=== PATIENT | female | born 1960 | race Caucasian/White ===

== ENCOUNTER 2017-05-20 12:07 | Emergency (ER) | payer OTHER ==
[~2017-05-20] VITALS: Ht 167.6 cm; Wt 88.0 kg
[2017-05-20 12:21] VITALS: BP 101/72
[2017-05-20 12:52] LABS: Basophils # (auto) 0.2 uL; Basophils % (auto) 1.6 % (0.0-2.0); CONDITION Y; Eosinophils # (auto) 0.4 uL; Eosinophils % (auto) 2.4 % (0.0-7.0); Hematocrit 41.1 % (36.0-46.0); Hemoglobin 13.9 g/dL (12.2-16.2); Lymphocytes # (auto) 2.7 uL; Lymphocytes % (auto) 18.6 % (10.0-50.0); Mean Corpuscular Hemoglobin 29.5 pg (28.0-32.0); Monocytes % (auto) 6.8 % (0.0-12.0); Neutrophils # (auto) 10.3 uL; Neutrophils % (auto) 70.6 % (37.0-80.0); Platelet Count (auto) 480 10^3/uL (140-450); Red Cell Distribution Width 12.8 % (11.6-16.0); White Blood Cell 14.6 10^3/uL (4.4-10.8)
[2017-05-20 13:17] LABS: Albumin 3.1 g/dL (3.4-5.0); Alkaline Phosphatase 133 U/L (45-117); Anion Gap 13 (5-15); Aspartate Aminotransferase 16 U/L (15-37); Bilirubin, Total 0.3 mg/dL (0.2-1.0); Blood Urea Nitrogen 17 mg/dL (7-18); Calcium 9.4 mg/dL (8.5-10.1); Carbon Dioxide 22 mmol/L (21-32); Chloride 104 mmol/L (98-107); GFR African American 89 mL/min; GFR Non-African American 74 mL/min; Glucose 137 mg/dL (74-106); Potassium 3.6 mmol/L (3.5-5.1); Sodium 139 mmol/L (136-145); Total Protein 7.6 g/dL (6.4-8.2)
[2017-05-20 13:44] LABS: Urine Bilirubin Negative (Negative); Urine Blood Negative /uL (Negative); Urine Color Yellow (Yellow); Urine Glucose Normal (Normal); Urine Hyaline Cast MANY /lpf (0 - 2); Urine Ketone TRACE (Negative); Urine Mucus FEW (None Seen); Urine Nitrite Negative (Negative); Urine RBC 2 /hpf (0 - 4); Urine Squamous Epithelial Cell MOD /hpf (<5); Urine WBC Clumps PRESENT /hpf (None Seen); Urine pH 5.5 (5.0-8.0)
== END 2017-05-21 00:30 | disposition left against medical advice (07) ==
LOC: ER 12:11
DX: R10.30 Lower abdominal pain, unspecified (principal); Z53.21 Procedure and treatment not carried out due to patient leaving prior to being seen by health care provider
CPT/HCPCS: 36415; 80053; 81001; 84484; 85025; 93005

== ENCOUNTER 2018-01-27 01:06 | Inpatient (IN) | payer OTHER ==
[~2018-01-27] VITALS: Ht 167.6 cm; Wt 78.2 kg
[2018-01-27 02:05] LABS: Basophils # (auto) 0.2 uL; Basophils % (auto) 1.1 % (0.0-2.0); Eosinophils # (auto) 0.4 uL; Eosinophils % (auto) 3.1 % (0.0-7.0); Hematocrit 45.2 % (36.0-46.0); Hemoglobin 15.2 g/dL (12.2-16.2); Lymphocytes # (auto) 2.7 uL; Lymphocytes % (auto) 18.7 % (10.0-50.0); Mean Corpuscular Hemoglobin 29.3 pg (28.0-32.0); Mean Corpuscular Hgb Conc. 33.6 g/dL (32.0-36.0); Mean Corpuscular Volume 87.3 fL (80.0-100.0); Monocytes # (auto) 0.8 uL; Monocytes % (auto) 5.6 % (0.0-12.0); Neutrophils # (auto) 10.5 uL; Neutrophils % (auto) 71.5 % (37.0-80.0); Platelet Count (auto) 343 10^3/uL (140-450); Red Blood Cells 5.18 10^6/uL (4.0-5.20); Red Cell Distribution Width 13.3 % (11.8-14.3); White Blood Cell 14.7 10^3/uL (4.4-10.8)
[2018-01-27 02:46] LABS: Albumin 3.3 g/dL (3.4-5.0); BUN/Creatinine Ratio 19.4; Magnesium 1.7 mg/dL (1.6-2.6); Potassium 3.8 mmol/L (3.5-5.1)
[2018-01-27 02:51] LABS: Bilirubin, Total 0.3 mg/dL (0.2-1.0)
[2018-01-27] MEDS ORDERED: metroNIDAZOLE 500 MG TAB PO ONE (04:00)
[2018-01-27] MEDS ORDERED: cefTRIAXone 1GM/10ml IVPUSH 10 ML IV ONE (04:00)
[2018-01-27] MEDS ORDERED: SODIUM CHLORIDE 0.9% 1,000 ML IV ONE (04:00)
[2018-01-27] MEDS ORDERED: ONDANSETRON HCL 4 MG/2 ML VIAL IV ONE (04:45)
[2018-01-27] MEDS ORDERED: MORPHINE SULFATE 4 MG/ML SYR/VIAL IV ONE (04:45)
[2018-01-27 05:03] LABS: Urine Bacteria NONE SEEN /hpf (None Seen); Urine Blood Negative /uL (Negative); Urine Specific Gravity 1.029 (1.001-1.035); Urine WBC 2 /hpf (0 - 5)
[2018-01-27] MEDS ORDERED: MORPHINE SULFATE 4 MG/ML SYR/VIAL IV PRN (05:15)
[2018-01-27] MEDS ORDERED: SODIUM CHLORIDE 0.9% 500 ML IV ONE (05:15)
[2018-01-27] MEDS ORDERED: NITROGLYCERIN 0.4 MG SL TAB SL PRN (05:15)
[2018-01-27] MEDS ORDERED: IOHEXOL 300 MG/ML 100ML BOTTLE IJ ONE (05:23)
[2018-01-27] MEDS: metroNIDAZOLE 500MG/100ML 100 ML IV SCH ×3 (06:13→22:18)
[2018-01-27] MEDS: MORPHINE SULFATE 4 MG/ML SYR/VIAL IV PRN ×4 (08:59→22:19)
[2018-01-27] MEDS: SODIUM CHLORIDE 0.9% 1,000 ML IV SCH ×2 (09:19→17:52)
[2018-01-27] MEDS: PANTOPRAZOLE 40 MG/10 ML VIAL IV SCH (09:39)
[2018-01-27] MEDS ORDERED: ATENOLOL 25 MG PO SCH (10:00)
[2018-01-27] MEDS: METOPROLOL TARTRATE 50 MG TAB PO SCH ×2 (10:17→22:19)
[2018-01-27] MEDS: BENAZEPRIL HCL 10 MG TAB PO SCH (10:18)
[2018-01-27 17:00] VITALS: BP 105/74
[2018-01-27] MEDS: ONDANSETRON HCL 4 MG/2 ML VIAL IV PRN (17:53)
[2018-01-27] MEDS: HYDROcodone-ACET 5/325MG TAB PO PRN (17:55)
[2018-01-27 18:14] VITALS: BP 115/78
[2018-01-27 20:00] VITALS: BP 127/84
[2018-01-27 21:40] VITALS: BP 127/84
[2018-01-28] VITALS (7 sets, daily range): BP systolic 110–130; BP diastolic 73–88
[2018-01-28] MEDS: MORPHINE SULFATE 4 MG/ML SYR/VIAL IV PRN ×4 (02:36→21:10)
[2018-01-28] MEDS: SODIUM CHLORIDE 0.9% 1,000 ML IV SCH ×2 (03:56→11:15)
[2018-01-28] MEDS: metroNIDAZOLE 500MG/100ML 100 ML IV SCH ×3 (05:24→21:26)
[2018-01-28] MEDS: HYDROcodone-ACET 5/325MG TAB PO PRN ×2 (05:29→21:10)
[2018-01-28 06:46] LABS: Basophils # (auto) 0 uL; Basophils % (auto) 0.4 % (0.0-2.0); Eosinophils # (auto) 0.3 uL; Eosinophils % (auto) 2.5 % (0.0-7.0); Hematocrit 40.4 % (36.0-46.0); Hemoglobin 13.4 g/dL (12.2-16.2); Lymphocytes # (auto) 1.8 uL; Mean Corpuscular Hemoglobin 29.6 pg (28.0-32.0); Mean Corpuscular Hgb Conc. 33.1 g/dL (32.0-36.0); Mean Corpuscular Volume 89.4 fL (80.0-100.0); Monocytes # (auto) 0.8 uL; Monocytes % (auto) 7.6 % (0.0-12.0); Neutrophils # (auto) 7.4 uL; Neutrophils % (auto) 71.5 % (37.0-80.0); Platelet Count (auto) 269 10^3/uL (140-450); Red Blood Cells 4.52 10^6/uL (4.0-5.20); Red Cell Distribution Width 13.5 % (11.8-14.3); White Blood Cell 10.3 10^3/uL (4.4-10.8)
[2018-01-28 07:09] LABS: Albumin 2.8 g/dL (3.4-5.0); BUN/Creatinine Ratio 17.5; Bilirubin, Total 0.5 mg/dL (0.2-1.0); Calcium 7.7 mg/dL (8.5-10.1); Potassium 3.7 mmol/L (3.5-5.1); Total Protein 5.9 g/dL (6.4-8.2)
[2018-01-28] MEDS: cefTRIAXone 1GM/10ml IVPUSH 10 ML IV SCH (10:24)
[2018-01-28] MEDS: PANTOPRAZOLE 40 MG/10 ML VIAL IV SCH (10:24)
[2018-01-28] MEDS: METOPROLOL TARTRATE 50 MG TAB PO SCH ×2 (10:26→21:27)
[2018-01-28] MEDS: BENAZEPRIL HCL 10 MG TAB PO SCH (10:26)
[2018-01-28] MEDS ORDERED: BENA20TA14 PO (10:32)
[2018-01-28] MEDS ORDERED: ATEN-60 PO (10:32)
[2018-01-28] MEDS: ONDANSETRON HCL 4 MG/2 ML VIAL IV PRN ×2 (10:50→15:21)
[2018-01-28] MEDS ORDERED: GOLYTELY 4L KIT PO ONE (12:00)
[2018-01-28] MEDS: SOD CHL 0.9%/ KCL 20MEQ 1,000 ML IV SCH (15:00)
[2018-01-28 15:50] LABS: INR 1.05 (0.9-1.15); Partial Thromboplastin Time 28.2 sec (22.64-33.71); Prothrombin Time 11.4 sec (9.37-12.3)
[2018-01-29] VITALS (7 sets, daily range): BP systolic 122–145; BP diastolic 84–98
[2018-01-29] MEDS: SOD CHL 0.9%/ KCL 20MEQ 1,000 ML IV SCH ×2 (00:21→03:07)
[2018-01-29] MEDS: MORPHINE SULFATE 4 MG/ML SYR/VIAL IV PRN ×4 (01:35→21:05)
[2018-01-29] MEDS: metroNIDAZOLE 500MG/100ML 100 ML IV SCH ×3 (05:03→22:34)
[2018-01-29] MEDS: HYDROcodone-ACET 5/325MG TAB PO PRN ×4 (05:08→19:43)
[2018-01-29] MEDS: METOPROLOL TARTRATE 50 MG TAB PO SCH ×2 (08:52→22:34)
[2018-01-29] MEDS: BENAZEPRIL HCL 10 MG TAB PO SCH (08:54)
[2018-01-29] MEDS: cefTRIAXone 1GM/10ml IVPUSH 10 ML IV SCH (08:55)
[2018-01-29] MEDS ORDERED: MAGNESIUM CITRATE SOLUTION 300 ML BTL PO ONE (10:00)
[2018-01-29] MEDS: PANTOPRAZOLE 40 MG TAB PO SCH (10:14)
[2018-01-29] MEDS ORDERED: GOLYTELY 4L KIT PO ONE (12:00)
[2018-01-29] MEDS: ONDANSETRON HCL 4 MG/2 ML VIAL IV PRN (21:05)
[2018-01-29] MEDS ORDERED: SOD CHL 0.9%/ KCL 20MEQ 1,000 ML IV ONE (22:00)
[2018-01-30] VITALS (37 sets, daily range): BP systolic 79–139; BP diastolic 52–112
[2018-01-30] MEDS ORDERED: HYDROmorphone HCL 2 MG/ML VL IV ONE
[2018-01-30] MEDS: HYDROcodone-ACET 5/325MG TAB PO PRN ×2 (00:03→09:00)
[2018-01-30] MEDS ORDERED: MORPHINE SULFATE 4 MG/ML SYR/VIAL IV ONE ×2 (00:15→16:00)
[2018-01-30] MEDS: MORPHINE SULFATE 4 MG/ML SYR/VIAL IV PRN ×4 (01:12→12:31)
[2018-01-30] MEDS: ONDANSETRON HCL 4 MG/2 ML VIAL IV PRN ×2 (01:12→05:31)
[2018-01-30] MEDS ORDERED: LORazepam 2MG/ML-1ML VIAL IV ONE (01:15)
[2018-01-30] MEDS ORDERED: GOLYTELY 4L KIT PO ONE (04:00)
[2018-01-30] MEDS: metroNIDAZOLE 500MG/100ML 100 ML IV SCH ×3 (05:31→21:16)
[2018-01-30 07:43] LABS: INR 1.26 (0.9-1.15); Partial Thromboplastin Time 28.3 sec (22.64-33.71); Prothrombin Time 13.8 sec (9.37-12.3)
[2018-01-30] MEDS ORDERED: MIDAZOLAM HCL 5 MG/ML-1ML VIAL ONE (07:55)
[2018-01-30] MEDS ORDERED: diphenhdrAMINE HCL 50 MG/1 ML VL ONE (07:55)
[2018-01-30] MEDS ORDERED: fentaNYL CITRATE 100 MCG/2 ML VL ONE ×3 (07:55→13:38)
[2018-01-30 08:07] LABS: Basophils # (auto) 0 uL; Basophils % (auto) 0.1 % (0.0-2.0); Eosinophils # (auto) 0 uL; Hemoglobin 12.1 g/dL (12.2-16.2); Lymphocytes # (auto) 0.4 uL; Lymphocytes % (auto) 4.8 % (10.0-50.0); Mean Corpuscular Hemoglobin 29.2 pg (28.0-32.0); Mean Corpuscular Hgb Conc. 32.7 g/dL (32.0-36.0); Mean Corpuscular Volume 89.1 fL (80.0-100.0); Monocytes # (auto) 0.4 uL; Monocytes % (auto) 4.3 % (0.0-12.0); Neutrophils # (auto) 7.9 uL; Neutrophils % (auto) 90.8 % (37.0-80.0); Nucleated Red Blood Cells % 0.1 %; Platelet Count (auto) 269 10^3/uL (140-450); Red Blood Cells 4.15 10^6/uL (4.0-5.20); Red Cell Distribution Width 13.4 % (11.8-14.3); White Blood Cell 8.7 10^3/uL (4.4-10.8)
[2018-01-30] MEDS: PANTOPRAZOLE 40 MG TAB PO SCH (10:00)
[2018-01-30] MEDS: BENAZEPRIL HCL 10 MG TAB PO SCH (10:00)
[2018-01-30] MEDS: METOPROLOL TARTRATE 50 MG TAB PO SCH ×2 (10:00→21:17)
[2018-01-30] MEDS: SOD CHL 0.45% WITH 20MEQ KCL 1,000 ML IV SCH (11:15)
[2018-01-30 11:47] LABS: INR 1.1 (0.9-1.15); Partial Thromboplastin Time 27.1 sec (22.64-33.71)
[2018-01-30 12:11] LABS: BUN/Creatinine Ratio 12.9; Calcium 8.2 mg/dL (8.5-10.1); Potassium 4.4 mmol/L (3.5-5.1)
[2018-01-30] MEDS: cefTRIAXone 1GM/10ml IVPUSH 10 ML IV SCH (12:31)
[2018-01-30] MEDS ORDERED: ETOMIDATE (2MG/ML) 20ML VIAL IV ONE (13:01)
[2018-01-30] MEDS ORDERED: PHENYLEPHRINE HCL 10 MG/ML VL IV ONE (13:01)
[2018-01-30] MEDS ORDERED: metroNIDAZOLE 500MG/100ML 100 ML IV ONE (13:04)
[2018-01-30] MEDS ORDERED: MEPERIDINE HCL (50 MG/ML) 1 ML VIAL ONE (13:19)
[2018-01-30] MEDS ORDERED: MIDAZOLAM HCL 1MG/1ML-2 ML VIAL ONE ×3 (13:19→13:53)
[2018-01-30] MEDS ORDERED: DEXAMETHASONE SOD PHOS 10MG/1ML VIAL INJ ONE (13:32)
[2018-01-30] MEDS ORDERED: ROCURONIUM 10MG/ML 10ML VIAL IV ONE (13:51)
[2018-01-30] MEDS ORDERED: fentaNYL CITRATE 5 ML ONE (13:53)
[2018-01-30] MEDS ORDERED: HYDROmorphone HCL 2 MG/ML VL IV PRN (14:15)
[2018-01-30] MEDS ORDERED: MORPHINE SULFATE 4 MG/ML SYR/VIAL IV PRN (14:15)
[2018-01-30] MEDS ORDERED: ONDANSETRON HCL 4 MG/2 ML VIAL IV ONE (14:15)
[2018-01-30] MEDS ORDERED: LABETALOL HCL 5 MG/ML 4ML SYRINGE IV PRN (14:15)
[2018-01-30] MEDS ORDERED: KETOROLAC TROMETH 30 MG/ML 1ML VIAL IV ONE (14:15)
[2018-01-30] MEDS ORDERED: MIDAZOLAM HCL 1MG/1ML-2 ML VIAL IV PRN (14:15)
[2018-01-30] MEDS ORDERED: ePHEDrine SULFATE 50 MG/ML AMP IV PRN (14:15)
[2018-01-30] MEDS ORDERED: POVIDONE IODINE 10 % TOPICAL OINT 30GM TOP ONE (14:52)
[2018-01-30] MEDS ORDERED: fentaNYL CITRATE 100 MCG/2 ML VL IV ONE (15:00)
[2018-01-30] MEDS ORDERED: NOREPINEPHRINE 8 MG/250ML KIT 250 ML IV ONE (15:10)
[2018-01-30] MEDS: MIDAZOLAM DRIP 50 mg/50mL 50 ML IV SCH ×2 (15:51→19:30)
[2018-01-30] MEDS ORDERED: NOREPINEPHRINE 8 MG/250ML KIT 250 ML IV SCH (16:00)
[2018-01-31] VITALS (33 sets, daily range): BP systolic 84–184; BP diastolic 47–183
[2018-01-31] MEDS: SOD CHL 0.45% WITH 20MEQ KCL 1,000 ML IV SCH ×3 (01:02→23:35)
[2018-01-31] MEDS: MORPHINE SULFATE 4 MG/ML SYR/VIAL IV PRN ×4 (04:52→21:00)
[2018-01-31] MEDS: metroNIDAZOLE 500MG/100ML 100 ML IV SCH ×3 (06:00→20:59)
[2018-01-31] MEDS: cefTRIAXone 1GM/10ml IVPUSH 10 ML IV SCH (08:48)
[2018-01-31] MEDS: METOPROLOL TARTRATE 50 MG TAB PO SCH ×2 (09:36→21:00)
[2018-01-31] MEDS: BENAZEPRIL HCL 10 MG TAB PO SCH (09:36)
[2018-01-31] MEDS: PANTOPRAZOLE 40 MG/10 ML VIAL IV SCH (09:47)
[2018-01-31] MEDS ORDERED: hydrALAZINE HCL 20 MG/ML VL IV PRN (14:15)
[2018-02-01] MEDS: MORPHINE SULFATE 4 MG/ML SYR/VIAL IV PRN ×5 (01:18→21:01)
[2018-02-01 03:43] VITALS: BP 125/75
[2018-02-01] MEDS: metroNIDAZOLE 500MG/100ML 100 ML IV SCH ×3 (05:06→21:00)
[2018-02-01 08:00] VITALS: BP 136/83
[2018-02-01] MEDS: cefTRIAXone 1GM/10ml IVPUSH 10 ML IV SCH (09:09)
[2018-02-01] MEDS: PANTOPRAZOLE 40 MG/10 ML VIAL IV SCH (09:54)
[2018-02-01] MEDS: METOPROLOL TARTRATE 50 MG TAB PO SCH ×2 (09:58→21:01)
[2018-02-01] MEDS: BENAZEPRIL HCL 10 MG TAB PO SCH ×2 (10:00→11:13)
[2018-02-01 11:50] VITALS: BP 134/90
[2018-02-01] MEDS: SOD CHL 0.45% WITH 20MEQ KCL 1,000 ML IV SCH (14:28)
[2018-02-01 15:50] VITALS: BP 136/82
[2018-02-01 19:50] VITALS: BP 164/74
[2018-02-02] VITALS: BP 141/77
[2018-02-02] MEDS: MORPHINE SULFATE 4 MG/ML SYR/VIAL IV PRN ×5 (01:01→23:58)
[2018-02-02 05:10] LABS: Basophils # (auto) 0 uL; Basophils % (auto) 0.2 % (0.0-2.0); Eosinophils # (auto) 0.4 uL; Eosinophils % (auto) 2.5 % (0.0-7.0); Hemoglobin 11.5 g/dL (12.2-16.2); Lymphocytes # (auto) 1.1 uL; Lymphocytes % (auto) 7.2 % (10.0-50.0); Mean Corpuscular Hemoglobin 28.9 pg (28.0-32.0); Mean Corpuscular Hgb Conc. 32.9 g/dL (32.0-36.0); Mean Corpuscular Volume 87.9 fL (80.0-100.0); Monocytes % (auto) 6.4 % (0.0-12.0); Neutrophils # (auto) 12.6 uL; Neutrophils % (auto) 83.7 % (37.0-80.0); Platelet Count (auto) 320 10^3/uL (140-450); Red Blood Cells 3.98 10^6/uL (4.0-5.20); Red Cell Distribution Width 13.4 % (11.8-14.3); White Blood Cell 15.1 10^3/uL (4.4-10.8)
[2018-02-02] MEDS: SOD CHL 0.45% WITH 20MEQ KCL 1,000 ML IV SCH ×2 (05:23→22:35)
[2018-02-02] MEDS: metroNIDAZOLE 500MG/100ML 100 ML IV SCH ×3 (05:23→22:24)
[2018-02-02 05:29] LABS: BUN/Creatinine Ratio 37.5; Calcium 7.7 mg/dL (8.5-10.1); Potassium 4.1 mmol/L (3.5-5.1)
[2018-02-02 07:57] VITALS: BP 126/72
[2018-02-02] MEDS: BENAZEPRIL HCL 10 MG TAB PO SCH (10:00)
[2018-02-02] MEDS: PANTOPRAZOLE 40 MG/10 ML VIAL IV SCH (10:15)
[2018-02-02] MEDS: METOPROLOL TARTRATE 50 MG TAB PO SCH ×2 (10:15→22:25)
[2018-02-02] MEDS: cefTRIAXone 1GM/10ml IVPUSH 10 ML IV SCH (10:15)
[2018-02-02 11:50] VITALS: BP 119/76
[2018-02-02 15:50] VITALS: BP 127/74
[2018-02-02 19:49] VITALS: BP 130/84
[2018-02-03] VITALS (8 sets, daily range): BP systolic 106–139; BP diastolic 67–88
[2018-02-03] MEDS: MORPHINE SULFATE 4 MG/ML SYR/VIAL IV PRN ×5 (04:20→23:36)
[2018-02-03 05:47] LABS: Basophils # (auto) 0 uL; Basophils % (auto) 0.3 % (0.0-2.0); Eosinophils # (auto) 0.3 uL; Eosinophils % (auto) 2.3 % (0.0-7.0); Hematocrit 37.4 % (36.0-46.0); Hemoglobin 12.3 g/dL (12.2-16.2); Lymphocytes # (auto) 1.4 uL; Lymphocytes % (auto) 9.9 % (10.0-50.0); Mean Corpuscular Volume 87.9 fL (80.0-100.0); Monocytes # (auto) 1.4 uL; Monocytes % (auto) 9.3 % (0.0-12.0); Neutrophils # (auto) 11.4 uL; Neutrophils % (auto) 78.2 % (37.0-80.0); Platelet Count (auto) 356 10^3/uL (140-450); Red Blood Cells 4.25 10^6/uL (4.0-5.20); White Blood Cell 14.6 10^3/uL (4.4-10.8)
[2018-02-03] MEDS: metroNIDAZOLE 500MG/100ML 100 ML IV SCH ×3 (05:50→21:39)
[2018-02-03 06:03] LABS: Calcium 8.2 mg/dL (8.5-10.1); Potassium 4.1 mmol/L (3.5-5.1)
[2018-02-03] MEDS: PANTOPRAZOLE 40 MG/10 ML VIAL IV SCH (09:38)
[2018-02-03] MEDS: cefTRIAXone 1GM/10ml IVPUSH 10 ML IV SCH (09:39)
[2018-02-03] MEDS: METOPROLOL TARTRATE 50 MG TAB PO SCH ×2 (09:39→21:38)
[2018-02-03] MEDS ORDERED: LIDOCAINE 1% HCL (LOCAL ANESTH.) INJ 20ML MDV ID ONE (15:30)
[2018-02-03] MEDS ORDERED: TPN PER PHARMACY 0 ML IV SCH (20:15)
[2018-02-03] MEDS: SODIUM CHLOR 0.9% PF (SALINE LOCK) 10ML VIAL/SYR IV SCH (21:38)
[2018-02-03] MEDS: BENAZEPRIL HCL 10 MG TAB PO SCH (21:38)
[2018-02-03] MEDS ORDERED: AMINO ACID INFUSION IN D10W 1,000 ML IV ONE (21:47)
[2018-02-03] MEDS: InsuLIN REG 1unit/0.01ml Soln (100units/ml) SC SCH (23:49)
[2018-02-03] MEDS: ACCU-CHEK COMFORT CURVE STRIP VI SCH (23:49)
[2018-02-04] MEDS ORDERED: DEXTROSE (50%) 50ML SYRG IV SCH
[2018-02-04 05:15] VITALS: BP 103/67
[2018-02-04] MEDS: metroNIDAZOLE 500MG/100ML 100 ML IV SCH ×3 (05:29→21:03)
[2018-02-04] MEDS: InsuLIN REG 1unit/0.01ml Soln (100units/ml) SC SCH ×3 (05:30→18:00)
[2018-02-04] MEDS: ACCU-CHEK COMFORT CURVE STRIP VI SCH ×3 (05:31→18:14)
[2018-02-04] MEDS: MORPHINE SULFATE 4 MG/ML SYR/VIAL IV PRN ×3 (06:54→20:32)
[2018-02-04 08:14] LABS: Albumin 1.7 g/dL (3.4-5.0); BUN/Creatinine Ratio 32.1; Bilirubin, Total 0.3 mg/dL (0.2-1.0); Calcium 7.7 mg/dL (8.5-10.1); Magnesium 2.2 mg/dL (1.6-2.6); Phosphorus 2.7 mg/dL (2.5-4.90); Potassium 3.6 mmol/L (3.5-5.1); Pre Albumin 7.1 mg/dL (20.0-40.0); Total Protein 5.4 g/dL (6.4-8.2)
[2018-02-04] MEDS: cefTRIAXone 1GM/10ml IVPUSH 10 ML IV SCH (08:58)
[2018-02-04 09:00] VITALS: BP 122/70
[2018-02-04] MEDS: METOPROLOL TARTRATE 50 MG TAB PO SCH ×2 (10:00→22:05)
[2018-02-04] MEDS: SODIUM CHLOR 0.9% PF (SALINE LOCK) 10ML VIAL/SYR IV SCH ×2 (11:02→22:00)
[2018-02-04] MEDS: PANTOPRAZOLE 40 MG/10 ML VIAL IV SCH (11:02)
[2018-02-04 13:00] VITALS: BP 108/76
[2018-02-04 17:00] VITALS: BP 135/74
[2018-02-04] MEDS ORDERED: TPN PER PHARMACY IV NR ×11 (20:00)
[2018-02-04 21:47] VITALS: BP 111/68
[2018-02-04] MEDS: ONDANSETRON HCL 4 MG/2 ML VIAL IV PRN (22:03)
[2018-02-04] MEDS: HYDROcodone-ACET 5/325MG TAB PO PRN (22:03)
[2018-02-04] MEDS: BENAZEPRIL HCL 10 MG TAB PO SCH (22:04)
[2018-02-04] MEDS: ACETAMINOPHEN 325 MG TAB PO PRN (22:04)
[2018-02-05] MEDS: MORPHINE SULFATE 4 MG/ML SYR/VIAL IV PRN ×6 (00:03→21:33)
[2018-02-05] MEDS: ACCU-CHEK COMFORT CURVE STRIP VI SCH ×4 (00:09→17:51)
[2018-02-05] MEDS: InsuLIN REG 1unit/0.01ml Soln (100units/ml) SC SCH ×4 (00:09→17:51)
[2018-02-05 04:49] VITALS: BP 80/42
[2018-02-05] MEDS: metroNIDAZOLE 500MG/100ML 100 ML IV SCH ×3 (05:18→19:48)
[2018-02-05] MEDS: ONDANSETRON HCL 4 MG/2 ML VIAL IV PRN ×2 (05:21→19:57)
[2018-02-05] MEDS: HYDROcodone-ACET 5/325MG TAB PO PRN ×3 (05:22→19:48)
[2018-02-05 07:00] VITALS: BP 90/60
[2018-02-05 07:27] LABS: Basophils # (auto) 0.1 uL; Basophils % (auto) 0.5 % (0.0-2.0); Eosinophils # (auto) 0.4 uL; Eosinophils % (auto) 3.4 % (0.0-7.0); Hematocrit 33.3 % (36.0-46.0); Hemoglobin 10.9 g/dL (12.2-16.2); Lymphocytes # (auto) 1.3 uL; Lymphocytes % (auto) 11.1 % (10.0-50.0); Mean Corpuscular Hemoglobin 28.9 pg (28.0-32.0); Mean Corpuscular Hgb Conc. 32.8 g/dL (32.0-36.0); Mean Corpuscular Volume 88.1 fL (80.0-100.0); Monocytes # (auto) 1.6 uL; Monocytes % (auto) 13.7 % (0.0-12.0); Neutrophils # (auto) 8.1 uL; Neutrophils % (auto) 71.3 % (37.0-80.0); Nucleated Red Blood Cells % 0.1 %; Platelet Count (auto) 404 10^3/uL (140-450); Red Blood Cells 3.78 10^6/uL (4.0-5.20); Red Cell Distribution Width 13.5 % (11.8-14.3); White Blood Cell 11.4 10^3/uL (4.4-10.8)
[2018-02-05 07:41] LABS: Albumin 1.7 g/dL (3.4-5.0); Bilirubin, Total 0.3 mg/dL (0.2-1.0); Calcium 7.7 mg/dL (8.5-10.1); Magnesium 2.5 mg/dL (1.6-2.6); Phosphorus 3.5 mg/dL (2.5-4.90); Potassium 3.5 mmol/L (3.5-5.1); Total Protein 5.5 g/dL (6.4-8.2)
[2018-02-05 08:10] VITALS: BP 90/57
[2018-02-05] MEDS: cefTRIAXone 1GM/10ml IVPUSH 10 ML IV SCH (09:41)
[2018-02-05] MEDS: PANTOPRAZOLE 40 MG/10 ML VIAL IV SCH (09:41)
[2018-02-05] MEDS: SODIUM CHLOR 0.9% PF (SALINE LOCK) 10ML VIAL/SYR IV SCH ×2 (10:00→19:49)
[2018-02-05] MEDS: METOPROLOL TARTRATE 50 MG TAB PO SCH ×2 (10:00→22:00)
[2018-02-05 12:57] VITALS: BP 91/46
[2018-02-05 17:36] VITALS: BP 97/42
[2018-02-05] MEDS ORDERED: TPN PER PHARMACY IV NR ×10 (20:00)
[2018-02-05] MEDS: BENAZEPRIL HCL 10 MG TAB PO SCH (21:28)
[2018-02-05 21:42] VITALS: BP 90/57
[2018-02-06] MEDS: InsuLIN REG 1unit/0.01ml Soln (100units/ml) SC SCH ×4 (00:33→17:34)
[2018-02-06] MEDS: ACCU-CHEK COMFORT CURVE STRIP VI SCH ×4 (00:33→17:34)
[2018-02-06] MEDS: MORPHINE SULFATE 4 MG/ML SYR/VIAL IV PRN ×6 (02:42→23:17)
[2018-02-06] MEDS: HYDROcodone-ACET 5/325MG TAB PO PRN ×2 (04:48→16:21)
[2018-02-06] MEDS: metroNIDAZOLE 500MG/100ML 100 ML IV SCH ×3 (04:48→21:44)
[2018-02-06] MEDS: ACETAMINOPHEN 325 MG TAB PO PRN (04:49)
[2018-02-06 05:07] VITALS: BP 102/67
[2018-02-06 06:00] LABS: Hematocrit 32.5 % (36.0-46.0); Hemoglobin 10.6 g/dL (12.2-16.2); Mean Corpuscular Hemoglobin 28.8 pg (28.0-32.0); Mean Corpuscular Hgb Conc. 32.5 g/dL (32.0-36.0); Mean Corpuscular Volume 88.4 fL (80.0-100.0); Platelet Count (auto) 410 10^3/uL (140-450); Red Blood Cells 3.68 10^6/uL (4.0-5.20); Red Cell Distribution Width 13.8 % (11.8-14.3); White Blood Cell 12.5 10^3/uL (4.4-10.8)
[2018-02-06 06:02] LABS: Basophils % (manual) 0 (0.0-2.0); Blast Cells 0; Eosinophils % (manual) 0 (0-7); Metamyelocytes % 0; Myelocytes % 0; Promyelocytes % 0; Reactive Lymphocytes 0
[2018-02-06 06:26] LABS: Albumin 1.8 g/dL (3.4-5.0); BUN/Creatinine Ratio 19.5; Bilirubin, Total 0.2 mg/dL (0.2-1.0); Calcium 7.5 mg/dL (8.5-10.1); Magnesium 2.4 mg/dL (1.6-2.6); Potassium 4.1 mmol/L (3.5-5.1); Total Protein 5.8 g/dL (6.4-8.2)
[2018-02-06 06:55] LABS: Band Neutrophils % (manual) 2; Lymphocytes % (manual) 10 (10.0-50.0); Monocytes % (manual) 12 (0-12)
[2018-02-06 08:00] VITALS: BP 93/61
[2018-02-06] MEDS: cefTRIAXone 1GM/10ml IVPUSH 10 ML IV SCH (08:28)
[2018-02-06] MEDS: PANTOPRAZOLE 40 MG/10 ML VIAL IV SCH (09:57)
[2018-02-06] MEDS: METOPROLOL TARTRATE 50 MG TAB PO SCH ×2 (10:00→21:43)
[2018-02-06] MEDS: SODIUM CHLOR 0.9% PF (SALINE LOCK) 10ML VIAL/SYR IV SCH ×2 (10:05→21:49)
[2018-02-06 13:01] VITALS: BP 102/68
[2018-02-06 17:03] VITALS: BP 100/75
[2018-02-06] MEDS ORDERED: TPN PER PHARMACY IV NR ×10 (20:00)
[2018-02-06] MEDS: BENAZEPRIL HCL 10 MG TAB PO SCH (21:41)
[2018-02-06 22:00] VITALS: BP 117/78
[2018-02-07] MEDS: HYDROcodone-ACET 5/325MG TAB PO PRN ×3 (00:17→08:22)
[2018-02-07] MEDS: MORPHINE SULFATE 4 MG/ML SYR/VIAL IV PRN ×5 (01:35→19:05)
[2018-02-07 05:00] VITALS: BP 89/59
[2018-02-07] MEDS: metroNIDAZOLE 500MG/100ML 100 ML IV SCH ×3 (05:34→22:00)
[2018-02-07] MEDS: ACCU-CHEK COMFORT CURVE STRIP VI SCH ×4 (05:39→19:03)
[2018-02-07] MEDS: InsuLIN REG 1unit/0.01ml Soln (100units/ml) SC SCH ×4 (05:39→18:00)
[2018-02-07 07:17] LABS: Basophils # (auto) 0 uL; Basophils % (auto) 0.5 % (0.0-2.0); Eosinophils # (auto) 0.3 uL; Hematocrit 32.9 % (36.0-46.0); Hemoglobin 10.7 g/dL (12.2-16.2); Lymphocytes # (auto) 1.2 uL; Lymphocytes % (auto) 11.3 % (10.0-50.0); Mean Corpuscular Hemoglobin 28.7 pg (28.0-32.0); Mean Corpuscular Hgb Conc. 32.5 g/dL (32.0-36.0); Mean Corpuscular Volume 88.6 fL (80.0-100.0); Monocytes # (auto) 1.1 uL; Monocytes % (auto) 10.3 % (0.0-12.0); Neutrophils # (auto) 8.3 uL; Neutrophils % (auto) 74.9 % (37.0-80.0); Nucleated Red Blood Cells % 0.1 %; Platelet Count (auto) 409 10^3/uL (140-450); Red Blood Cells 3.71 10^6/uL (4.0-5.20); Red Cell Distribution Width 13.7 % (11.8-14.3); White Blood Cell 11.1 10^3/uL (4.4-10.8)
[2018-02-07 07:26] LABS: Albumin 1.8 g/dL (3.4-5.0); BUN/Creatinine Ratio 21.4; Bilirubin, Total 0.2 mg/dL (0.2-1.0); Calcium 7.7 mg/dL (8.5-10.1); Magnesium 2.1 mg/dL (1.6-2.6); Phosphorus 3.4 mg/dL (2.5-4.90); Potassium 4.6 mmol/L (3.5-5.1); Total Protein 6.1 g/dL (6.4-8.2)
[2018-02-07 08:56] VITALS: BP 85/62
[2018-02-07] MEDS: PANTOPRAZOLE 40 MG/10 ML VIAL IV SCH (09:40)
[2018-02-07] MEDS: cefTRIAXone 1GM/10ml IVPUSH 10 ML IV SCH (09:40)
[2018-02-07] MEDS: SODIUM CHLOR 0.9% PF (SALINE LOCK) 10ML VIAL/SYR IV SCH ×2 (10:00→22:00)
[2018-02-07] MEDS: METOPROLOL TARTRATE 50 MG TAB PO SCH ×2 (10:00→22:38)
[2018-02-07 13:10] VITALS: BP 102/63
[2018-02-07 16:27] VITALS: BP 94/65
[2018-02-07] MEDS ORDERED: TPN PER PHARMACY IV NR ×11 (20:00)
[2018-02-07 22:00] VITALS: BP 105/65
[2018-02-07] MEDS: BENAZEPRIL HCL 10 MG TAB PO SCH (22:37)
[2018-02-08] MEDS: InsuLIN REG 1unit/0.01ml Soln (100units/ml) SC SCH ×4 (00:23→17:55)
[2018-02-08] MEDS: ACCU-CHEK COMFORT CURVE STRIP VI SCH ×4 (00:23→17:55)
[2018-02-08] MEDS: MORPHINE SULFATE 4 MG/ML SYR/VIAL IV PRN ×4 (05:40→20:20)
[2018-02-08 05:56] VITALS: BP 99/58
[2018-02-08] MEDS: metroNIDAZOLE 500MG/100ML 100 ML IV SCH ×3 (05:56→22:00)
[2018-02-08 06:24] LABS: Albumin 1.9 g/dL (3.4-5.0); BUN/Creatinine Ratio 20.5; Bilirubin, Total 0.3 mg/dL (0.2-1.0); Magnesium 2.3 mg/dL (1.6-2.6); Phosphorus 3.9 mg/dL (2.5-4.90); Potassium 4.2 mmol/L (3.5-5.1); Pre Albumin 12.9 mg/dL (20.0-40.0); Total Protein 6.5 g/dL (6.4-8.2)
[2018-02-08 08:49] VITALS: BP 89/59
[2018-02-08] MEDS: PANTOPRAZOLE 40 MG/10 ML VIAL IV SCH (09:39)
[2018-02-08] MEDS: cefTRIAXone 1GM/10ml IVPUSH 10 ML IV SCH (09:39)
[2018-02-08] MEDS: SODIUM CHLOR 0.9% PF (SALINE LOCK) 10ML VIAL/SYR IV SCH ×2 (09:40→22:29)
[2018-02-08] MEDS: METOPROLOL TARTRATE 50 MG TAB PO SCH ×2 (09:40→22:00)
[2018-02-08 13:00] VITALS: BP 87/59
[2018-02-08 16:28] VITALS: BP 94/61
[2018-02-08] MEDS ORDERED: TPN PER PHARMACY IV NR ×11 (20:00)
[2018-02-08 22:00] VITALS: BP 94/57
[2018-02-08] MEDS: BENAZEPRIL HCL 10 MG TAB PO SCH (22:00)
[2018-02-08] MEDS: HYDROcodone-ACET 5/325MG TAB PO PRN (22:20)
[2018-02-09] MEDS: MORPHINE SULFATE 4 MG/ML SYR/VIAL IV PRN ×6 (00:33→22:07)
[2018-02-09] MEDS: HYDROcodone-ACET 5/325MG TAB PO PRN ×2 (00:34→15:23)
[2018-02-09 05:00] VITALS: BP 112/70
[2018-02-09] MEDS: ACCU-CHEK COMFORT CURVE STRIP VI SCH ×4 (06:17→17:23)
[2018-02-09] MEDS: InsuLIN REG 1unit/0.01ml Soln (100units/ml) SC SCH ×4 (06:18→17:42)
[2018-02-09] MEDS: metroNIDAZOLE 500MG/100ML 100 ML IV SCH ×3 (06:19→22:07)
[2018-02-09 08:45] VITALS: BP 97/56
[2018-02-09] MEDS: cefTRIAXone 1GM/10ml IVPUSH 10 ML IV SCH (09:02)
[2018-02-09] MEDS: PANTOPRAZOLE 40 MG/10 ML VIAL IV SCH (09:25)
[2018-02-09] MEDS: SODIUM CHLOR 0.9% PF (SALINE LOCK) 10ML VIAL/SYR IV SCH ×2 (09:26→22:07)
[2018-02-09] MEDS: METOPROLOL TARTRATE 50 MG TAB PO SCH ×2 (09:27→22:00)
[2018-02-09] MEDS ORDERED: MAGNESIUM CITRATE SOLUTION 300 ML BTL PO ONE (12:00)
[2018-02-09] MEDS ORDERED: VANCOMYCIN 500 MG in D5W 5% 100 ML IV SCH (12:15)
[2018-02-09 13:00] VITALS: BP 107/64
[2018-02-09 13:24] LABS: Albumin 2.2 g/dL (3.4-5.0); BUN/Creatinine Ratio 21.4; Bilirubin, Total 0.3 mg/dL (0.2-1.0); Calcium 8.5 mg/dL (8.5-10.1); Magnesium 2.1 mg/dL (1.6-2.6); Phosphorus 3.3 mg/dL (2.5-4.90); Potassium 4.5 mmol/L (3.5-5.1); Total Protein 7.3 g/dL (6.4-8.2)
[2018-02-09] MEDS: ONDANSETRON HCL 4 MG/2 ML VIAL IV PRN (16:23)
[2018-02-09 17:00] VITALS: BP 108/69
[2018-02-09] MEDS ORDERED: TPN PER PHARMACY IV NR ×11 (20:00)
[2018-02-09] MEDS ORDERED: PPN PER PHARMACY IV NR ×9 (20:00)
[2018-02-09 22:00] VITALS: BP 91/60
[2018-02-09] MEDS: BENAZEPRIL HCL 10 MG TAB PO SCH (22:00)
[2018-02-10] MEDS: HYDROcodone-ACET 5/325MG TAB PO PRN ×4 (01:01→21:58)
[2018-02-10] MEDS: MORPHINE SULFATE 4 MG/ML SYR/VIAL IV PRN ×4 (02:18→22:26)
[2018-02-10] MEDS: ACETAMINOPHEN 325 MG TAB PO PRN (03:57)
[2018-02-10 05:30] VITALS: BP 95/57
[2018-02-10 05:46] LABS: Basophils # (auto) 0.1 uL; Eosinophils # (auto) 0.4 uL; Red Blood Cells 3.89 10^6/uL (4.0-5.20)
[2018-02-10 05:49] LABS: Basophils % (auto) 0.8 % (0.0-2.0); Eosinophils % (auto) 3.7 % (0.0-7.0); Hematocrit 33.9 % (36.0-46.0); Hemoglobin 11.3 g/dL (12.2-16.2); Lymphocytes # (auto) 1.7 uL; Lymphocytes % (auto) 16.9 % (10.0-50.0); Mean Corpuscular Hgb Conc. 33.2 g/dL (32.0-36.0); Mean Corpuscular Volume 87.3 fL (80.0-100.0); Monocytes # (auto) 1.4 uL; Monocytes % (auto) 13.7 % (0.0-12.0); Neutrophils # (auto) 6.7 uL; Neutrophils % (auto) 64.9 % (37.0-80.0); Nucleated Red Blood Cells % 0.1 %; Platelet Count (auto) 468 10^3/uL (140-450); Red Cell Distribution Width 13.2 % (11.8-14.3); White Blood Cell 10.3 10^3/uL (4.4-10.8)
[2018-02-10] MEDS: InsuLIN REG 1unit/0.01ml Soln (100units/ml) SC SCH ×4 (05:50→17:26)
[2018-02-10] MEDS: metroNIDAZOLE 500MG/100ML 100 ML IV SCH ×3 (05:50→22:24)
[2018-02-10] MEDS: ACCU-CHEK COMFORT CURVE STRIP VI SCH ×4 (05:50→17:26)
[2018-02-10 06:15] LABS: Albumin 2.1 g/dL (3.4-5.0); BUN/Creatinine Ratio 34.1; Bilirubin, Total 0.3 mg/dL (0.2-1.0); Magnesium 2.4 mg/dL (1.6-2.6); Phosphorus 3.9 mg/dL (2.5-4.90); Potassium 4.3 mmol/L (3.5-5.1); Total Protein 6.8 g/dL (6.4-8.2)
[2018-02-10 09:00] VITALS: BP 91/57
[2018-02-10] MEDS: METOPROLOL TARTRATE 50 MG TAB PO SCH ×2 (10:00→22:00)
[2018-02-10] MEDS: PANTOPRAZOLE 40 MG/10 ML VIAL IV SCH (10:11)
[2018-02-10] MEDS: cefTRIAXone 1GM/10ml IVPUSH 10 ML IV SCH (10:11)
[2018-02-10] MEDS: SODIUM CHLOR 0.9% PF (SALINE LOCK) 10ML VIAL/SYR IV SCH ×2 (10:12→22:25)
[2018-02-10] MEDS ORDERED: PHENYLEPHRINE HCL 10 MG/ML VL IV ONE (10:29)
[2018-02-10 13:00] VITALS: BP 97/60
[2018-02-10] MEDS ORDERED: MEPERIDINE HCL (50 MG/ML) 1 ML VIAL ONE (13:30)
[2018-02-10] MEDS ORDERED: fentaNYL CITRATE 100 MCG/2 ML VL ONE (13:30)
[2018-02-10] MEDS ORDERED: MIDAZOLAM HCL 1MG/1ML-2 ML VIAL ONE (13:30)
[2018-02-10] MEDS ORDERED: DEXAMETHASONE SOD PHOS 10MG/1ML VIAL INJ ONE (13:51)
[2018-02-10] MEDS ORDERED: PROPOFOL 10 MG/ML 20 ML IV ONE (14:01)
[2018-02-10 17:17] VITALS: BP 101/60
[2018-02-10] MEDS ORDERED: TPN PER PHARMACY IV NR ×11 (20:00)
[2018-02-10 21:50] VITALS: BP 101/56
[2018-02-10] MEDS: BENAZEPRIL HCL 10 MG TAB PO SCH (22:00)
[2018-02-11] MEDS: TEMAZEPAM 15 MG CAP PO PRN (01:11)
[2018-02-11] MEDS: MORPHINE SULFATE 4 MG/ML SYR/VIAL IV PRN ×5 (04:48→20:54)
[2018-02-11 05:26] VITALS: BP 104/70
[2018-02-11] MEDS: InsuLIN REG 1unit/0.01ml Soln (100units/ml) SC SCH ×4 (06:00→17:20)
[2018-02-11] MEDS: ACCU-CHEK COMFORT CURVE STRIP VI SCH ×4 (06:00→17:20)
[2018-02-11] MEDS: metroNIDAZOLE 500MG/100ML 100 ML IV SCH ×3 (06:11→22:13)
[2018-02-11 06:20] LABS: Albumin 2.2 g/dL (3.4-5.0); BUN/Creatinine Ratio 24.1; Bilirubin, Total 0.4 mg/dL (0.2-1.0); Calcium 8.1 mg/dL (8.5-10.1); Magnesium 2.2 mg/dL (1.6-2.6); Phosphorus 3.5 mg/dL (2.5-4.90); Potassium 4.2 mmol/L (3.5-5.1); Total Protein 7.2 g/dL (6.4-8.2)
[2018-02-11] MEDS: PANTOPRAZOLE 40 MG/10 ML VIAL IV SCH (08:40)
[2018-02-11] MEDS: cefTRIAXone 1GM/10ml IVPUSH 10 ML IV SCH (08:41)
[2018-02-11 08:55] VITALS: BP 99/67
[2018-02-11] MEDS: METOPROLOL TARTRATE 50 MG TAB PO SCH ×2 (09:25→22:00)
[2018-02-11] MEDS: SODIUM CHLOR 0.9% PF (SALINE LOCK) 10ML VIAL/SYR IV SCH ×2 (09:25→22:13)
[2018-02-11 13:00] VITALS: BP 105/72
[2018-02-11] MEDS: ONDANSETRON HCL 4 MG/2 ML VIAL IV PRN ×2 (13:15→17:17)
[2018-02-11 17:00] VITALS: BP 94/65
[2018-02-11] MEDS ORDERED: TPN PER PHARMACY IV NR ×10 (20:00)
[2018-02-11 21:31] VITALS: BP 107/64
[2018-02-11] MEDS: BENAZEPRIL HCL 10 MG TAB PO SCH (22:00)
[2018-02-12] MEDS: MORPHINE SULFATE 4 MG/ML SYR/VIAL IV PRN ×5 (00:59→20:00)
[2018-02-12] MEDS: TEMAZEPAM 15 MG CAP PO PRN (02:01)
[2018-02-12 05:00] VITALS: BP 112/62
[2018-02-12 05:37] LABS: BUN/Creatinine Ratio 23.5; Bilirubin, Total 0.3 mg/dL (0.2-1.0); Calcium 7.9 mg/dL (8.5-10.1); Magnesium 2.1 mg/dL (1.6-2.6); Phosphorus 3.3 mg/dL (2.5-4.90); Total Protein 6.5 g/dL (6.4-8.2)
[2018-02-12] MEDS: ACCU-CHEK COMFORT CURVE STRIP VI SCH ×4 (06:00→17:52)
[2018-02-12] MEDS: InsuLIN REG 1unit/0.01ml Soln (100units/ml) SC SCH ×4 (06:00→17:52)
[2018-02-12] MEDS: metroNIDAZOLE 500MG/100ML 100 ML IV SCH ×3 (06:39→22:00)
[2018-02-12 09:00] VITALS: BP 107/65
[2018-02-12] MEDS: METOPROLOL TARTRATE 50 MG TAB PO SCH ×2 (10:00→22:00)
[2018-02-12] MEDS: PANTOPRAZOLE 40 MG/10 ML VIAL IV SCH (10:11)
[2018-02-12] MEDS: cefTRIAXone 1GM/10ml IVPUSH 10 ML IV SCH (10:22)
[2018-02-12] MEDS: SODIUM CHLOR 0.9% PF (SALINE LOCK) 10ML VIAL/SYR IV SCH ×2 (10:23→22:00)
[2018-02-12 13:00] VITALS: BP 100/74
[2018-02-12] MEDS ORDERED: TPN PER PHARMACY 0 ML IV SCH (16:00)
[2018-02-12 16:34] LABS: INR 1.1 (0.9-1.15); Partial Thromboplastin Time 27.1 sec (22.64-33.71)
[2018-02-12 17:00] VITALS: BP 100/65
[2018-02-12] MEDS: ONDANSETRON HCL 4 MG/2 ML VIAL IV PRN (18:15)
[2018-02-12] MEDS ORDERED: TPN PER PHARMACY IV NR ×12 (20:00)
[2018-02-12 22:00] VITALS: BP 99/62
[2018-02-12] MEDS: BENAZEPRIL HCL 10 MG TAB PO SCH (22:00)
[2018-02-13] MEDS: MORPHINE SULFATE 4 MG/ML SYR/VIAL IV PRN ×6 (00:09→21:26)
[2018-02-13] MEDS: TEMAZEPAM 15 MG CAP PO PRN ×2 (00:47→22:29)
[2018-02-13 05:00] VITALS: BP 92/52
[2018-02-13] MEDS: metroNIDAZOLE 500MG/100ML 100 ML IV SCH ×3 (05:46→20:48)
[2018-02-13] MEDS: InsuLIN REG 1unit/0.01ml Soln (100units/ml) SC SCH ×4 (06:00→17:35)
[2018-02-13] MEDS: ACCU-CHEK COMFORT CURVE STRIP VI SCH ×4 (06:00→17:34)
[2018-02-13 06:09] LABS: Albumin 2.2 g/dL (3.4-5.0); BUN/Creatinine Ratio 27.5; Bilirubin, Total 0.3 mg/dL (0.2-1.0); Calcium 8.4 mg/dL (8.5-10.1); Magnesium 2.2 mg/dL (1.6-2.6); Phosphorus 3.7 mg/dL (2.5-4.90); Potassium 4.3 mmol/L (3.5-5.1); Total Protein 7.2 g/dL (6.4-8.2)
[2018-02-13 08:44] VITALS: BP 96/68
[2018-02-13] MEDS: cefTRIAXone 1GM/10ml IVPUSH 10 ML IV SCH (09:06)
[2018-02-13] MEDS: PANTOPRAZOLE 40 MG/10 ML VIAL IV SCH (09:06)
[2018-02-13] MEDS: METOPROLOL TARTRATE 50 MG TAB PO SCH ×2 (10:00→20:49)
[2018-02-13] MEDS: SODIUM CHLOR 0.9% PF (SALINE LOCK) 10ML VIAL/SYR IV SCH ×2 (10:40→20:49)
[2018-02-13 12:11] VITALS: BP 89/59
[2018-02-13 16:29] VITALS: BP 104/69
[2018-02-13] MEDS ORDERED: [UNRECOGNIZED DRUG - OTHER] IV ONE ×12 (20:00)
[2018-02-13] MEDS ORDERED: SODIUM PHOSPHATES IV ONE ×12 (20:00)
[2018-02-13] MEDS ORDERED: FAT EMULSION IV ONE ×12 (20:00)
[2018-02-13] MEDS ORDERED: SODIUM CHLORIDE IV ONE ×12 (20:00)
[2018-02-13] MEDS: BENAZEPRIL HCL 10 MG TAB PO SCH (21:25)
[2018-02-13 21:38] VITALS: BP 101/63
[2018-02-14] VITALS (31 sets, daily range): BP systolic 83–117; BP diastolic 51–80
[2018-02-14] MEDS: ACCU-CHEK COMFORT CURVE STRIP VI SCH ×5 (00:24→23:56)
[2018-02-14] MEDS: InsuLIN REG 1unit/0.01ml Soln (100units/ml) SC SCH ×5 (00:31→23:56)
[2018-02-14] MEDS: ONDANSETRON HCL 4 MG/2 ML VIAL IV PRN (00:38)
[2018-02-14] MEDS: MORPHINE SULFATE 4 MG/ML SYR/VIAL IV PRN ×4 (04:00→16:33)
[2018-02-14] MEDS: metroNIDAZOLE 500MG/100ML 100 ML IV SCH (05:38)
[2018-02-14 06:24] LABS: Albumin 2.2 g/dL (3.4-5.0); Bilirubin, Total 0.3 mg/dL (0.2-1.0); Calcium 8.1 mg/dL (8.5-10.1); Magnesium 2.1 mg/dL (1.6-2.6); Phosphorus 3.6 mg/dL (2.5-4.90); Potassium 4.3 mmol/L (3.5-5.1); Pre Albumin 19.5 mg/dL (20.0-40.0); Total Protein 7.1 g/dL (6.4-8.2)
[2018-02-14] MEDS ORDERED: MEPERIDINE HCL (50 MG/ML) 1 ML VIAL ONE ×2 (07:43→12:37)
[2018-02-14] MEDS ORDERED: fentaNYL CITRATE 100 MCG/2 ML VL ONE ×5 (07:43→11:07)
[2018-02-14] MEDS ORDERED: ONDANSETRON HCL 4 MG/2 ML VIAL ONE (07:44)
[2018-02-14] MEDS ORDERED: MIDAZOLAM HCL 1MG/1ML-2 ML VIAL ONE ×2 (07:44→12:38)
[2018-02-14] MEDS ORDERED: KETOROLAC TROMETH 60MG/2ML VIAL IM ONE (07:44)
[2018-02-14] MEDS ORDERED: GLYCOPYRROLATE 0.2 MG/ML 1ML VIAL ONE (07:44)
[2018-02-14] MEDS ORDERED: ROCURONIUM 10MG/ML 10ML VIAL IV ONE (07:44)
[2018-02-14] MEDS ORDERED: NEOSTIGMINE 1 MG/ML INJ (10mg/10ML VIAL) ONE (07:44)
[2018-02-14] MEDS ORDERED: ceFAZolin 1GM/100ML 50 ML IV ONE (08:14)
[2018-02-14] MEDS ORDERED: POVIDONE IODINE 10 % TOPICAL OINT 30GM TOP ONE (08:53)
[2018-02-14] MEDS: cefTRIAXone 1GM/10ml IVPUSH 10 ML IV SCH ×2 (09:00→21:51)
[2018-02-14] MEDS: PANTOPRAZOLE 40 MG/10 ML VIAL IV SCH (10:00)
[2018-02-14] MEDS: SODIUM CHLOR 0.9% PF (SALINE LOCK) 10ML VIAL/SYR IV SCH ×2 (10:00→20:01)
[2018-02-14] MEDS: METOPROLOL TARTRATE 50 MG TAB PO SCH (10:00)
[2018-02-14] MEDS ORDERED: ACCU-CHEK COMFORT CURVE STRIP VI ONE (11:15)
[2018-02-14] MEDS ORDERED: MORPHINE SULFATE 4 MG/ML SYR/VIAL IV PRN (11:15)
[2018-02-14] MEDS ORDERED: METOCLOPRAMIDE HCL 5MG/ml INJ 2ml VIAL IV ONE (11:15)
[2018-02-14] MEDS ORDERED: HYDROmorphone HCL 2 MG/ML VL ONE (12:37)
[2018-02-14] MEDS ORDERED: ALBUMIN 25% 50 ML IV ONE ×6 (14:50→15:30)
[2018-02-14] MEDS ORDERED: KETOROLAC TROMETH 30 MG/ML 1ML VIAL IV ONE (15:00)
[2018-02-14 16:21] LABS: BUN/Creatinine Ratio 19.7; Calcium 7.2 mg/dL (8.5-10.1); Potassium 4.5 mmol/L (3.5-5.1)
[2018-02-14 16:24] LABS: Bilirubin, Total 1.4 mg/dL (0.2-1.0)
[2018-02-14 16:41] LABS: Hematocrit 48.6 % (36.0-46.0); Hemoglobin 14.5 g/dL (12.2-16.2); Mean Corpuscular Hemoglobin 28.4 pg (28.0-32.0); Mean Corpuscular Hgb Conc. 29.9 g/dL (32.0-36.0); Mean Corpuscular Volume 95.1 fL (80.0-100.0); Platelet Count (auto) 399 10^3/uL (140-450); Red Blood Cells 5.11 10^6/uL (4.0-5.20); Red Cell Distribution Width 14.5 % (11.8-14.3); White Blood Cell 24.6 10^3/uL (4.4-10.8)
[2018-02-14 16:50] LABS: Basophils % (manual) 0 (0.0-2.0); Blast Cells 0; Eosinophils % (manual) 0 (0-7); Metamyelocytes % 0; Myelocytes % 0; Promyelocytes % 0; Reactive Lymphocytes 0
[2018-02-14 18:00] LABS: Band Neutrophils % (manual) 28; Lymphocytes % (manual) 6 (10.0-50.0); Monocytes % (manual) 6 (0-12)
[2018-02-14] MEDS ORDERED: TPN PER PHARMACY IV NR ×12 (20:00)
[2018-02-14] MEDS: MIDAZOLAM DRIP 50 mg/50mL 50 ML IV SCH ×2 (20:00→23:30)
[2018-02-14] MEDS: NOREPINEPHRINE 8 MG/250ML KIT 250 ML IV SCH (20:00)
[2018-02-14] MEDS: BENAZEPRIL HCL 10 MG TAB PO SCH (20:01)
[2018-02-14] MEDS ORDERED: ACETAMINOPHEN 650 MG RECT SUPP PR PRN (21:15)
[2018-02-14 22:48] LABS: Lactic Acid w/Reflex 4.3 mmol/L (0.4-2.0)
[2018-02-14] MEDS ORDERED: VANCOMYCIN PER PHARMACY 0 MG IV SCH (23:30)
[2018-02-14] MEDS ORDERED: VANCOMYCIN 1GM/250ML 250 ML IV ONE (23:45)
[2018-02-14] MEDS: SODIUM CHLORIDE 0.9% 1,000 ML IV SCH (23:55)
[2018-02-15] VITALS (93 sets, daily range): BP systolic 66–117; BP diastolic 37–74
[2018-02-15 00:06] LABS: BUN/Creatinine Ratio 15.9
[2018-02-15 00:07] LABS: Hematocrit 38.8 % (36.0-46.0); Hemoglobin 12.4 g/dL (12.2-16.2); Mean Corpuscular Hemoglobin 28.5 pg (28.0-32.0); Mean Corpuscular Hgb Conc. 31.8 g/dL (32.0-36.0); Mean Corpuscular Volume 89.6 fL (80.0-100.0); Platelet Count (auto) 288 10^3/uL (140-450); Red Blood Cells 4.34 10^6/uL (4.0-5.20); Red Cell Distribution Width 13.5 % (11.8-14.3); White Blood Cell 21.7 10^3/uL (4.4-10.8)
[2018-02-15 00:08] LABS: Bilirubin, Total 1.3 mg/dL (0.2-1.0); Total Protein 5.3 g/dL (6.4-8.2)
[2018-02-15 00:11] LABS: Basophils % (manual) 0 (0.0-2.0); Blast Cells 0; Eosinophils % (manual) 0 (0-7); INR 1.34 (0.9-1.15); Metamyelocytes % 0; Myelocytes % 0; Partial Thromboplastin Time 27.1 sec (22.64-33.71); Promyelocytes % 0; Prothrombin Time 14.7 sec (9.37-12.3); Reactive Lymphocytes 0
[2018-02-15 00:26] LABS: Band Neutrophils % (manual) 35; Lymphocytes % (manual) 2 (10.0-50.0); Monocytes % (manual) 4 (0-12)
[2018-02-15] MEDS: MORPHINE SULFATE 4 MG/ML SYR/VIAL IV PRN (01:12)
[2018-02-15] MEDS: fentaNYL Drip 2500mCg/250mlNS 250 ML IV SCH (02:00)
[2018-02-15] MEDS: MIDAZOLAM DRIP 50 mg/50mL 50 ML IV SCH ×5 (02:45→21:56)
[2018-02-15 04:03] LABS: Hematocrit 37.9 % (36.0-46.0); Hemoglobin 12.2 g/dL (12.2-16.2); Mean Corpuscular Hemoglobin 28.6 pg (28.0-32.0); Mean Corpuscular Hgb Conc. 32.2 g/dL (32.0-36.0); Mean Corpuscular Volume 88.8 fL (80.0-100.0); Platelet Count (auto) 304 10^3/uL (140-450); Red Blood Cells 4.27 10^6/uL (4.0-5.20); Red Cell Distribution Width 13.4 % (11.8-14.3); White Blood Cell 27.3 10^3/uL (4.4-10.8)
[2018-02-15 04:11] LABS: Basophils % (manual) 0 (0.0-2.0); Blast Cells 0; Myelocytes % 0; Promyelocytes % 0; Reactive Lymphocytes 0
[2018-02-15 04:26] LABS: BUN/Creatinine Ratio 20.6; Calcium 6.9 mg/dL (8.5-10.1); Magnesium 1.7 mg/dL (1.6-2.6); Phosphorus 1.7 mg/dL (2.5-4.90); Potassium 4.3 mmol/L (3.5-5.1); Total Protein 5.2 g/dL (6.4-8.2)
[2018-02-15 04:32] LABS: Band Neutrophils % (manual) 27; Eosinophils % (manual) 1 (0-7); Lymphocytes % (manual) 8 (10.0-50.0); Metamyelocytes % 4; Monocytes % (manual) 3 (0-12)
[2018-02-15] MEDS: InsuLIN REG 1unit/0.01ml Soln (100units/ml) SC SCH ×4 (05:23→23:37)
[2018-02-15] MEDS: ACCU-CHEK COMFORT CURVE STRIP VI SCH ×4 (05:23→23:18)
[2018-02-15] MEDS: SODIUM CHLOR 0.9% PF (SALINE LOCK) 10ML VIAL/SYR IV SCH ×2 (08:47→21:52)
[2018-02-15] MEDS: PANTOPRAZOLE 40 MG/10 ML VIAL IV SCH (08:47)
[2018-02-15] MEDS: SODIUM CHLORIDE 0.9% 1,000 ML IV SCH ×3 (08:47→23:00)
[2018-02-15] MEDS: cefTRIAXone 1GM/10ml IVPUSH 10 ML IV SCH (08:47)
[2018-02-15] MEDS: NOREPINEPHRINE 8 MG/250ML KIT 250 ML IV SCH ×3 (08:55→22:25)
[2018-02-15] MEDS ORDERED: hydrALAZINE HCL 20 MG/ML VL IV PRN (09:00)
[2018-02-15] MEDS ORDERED: ACCU-CHEK COMFORT CURVE STRIP VI ONE (09:00)
[2018-02-15] MEDS ORDERED: SODIUM PHOSPHATES 20 MEQ in SODIUM CHL 0.9% 100 ML IV ONE (09:15)
[2018-02-15] MEDS ORDERED: MAGNESIUM SULFATE 1GM/100ML 100 ML IV ONE (09:30)
[2018-02-15] MEDS: VANCOMYCIN 1GM/250ML 250 ML IV SCH ×2 (12:01→23:18)
[2018-02-15] MEDS ORDERED: POTASSIUM PHOSPHATE 22 MEQ in SODIUM CHL 0.9% 100 ML IV ONE (14:00)
[2018-02-15] MEDS: FLUCONAZOLE 200MG/100ML 100 ML IV SCH (19:09)
[2018-02-15] MEDS ORDERED: TPN PER PHARMACY IV NR ×11 (20:00)
[2018-02-15] MEDS: BENAZEPRIL HCL 10 MG TAB PO SCH (21:52)
[2018-02-16] VITALS (106 sets, daily range): BP systolic 78–132; BP diastolic 41–78
[2018-02-16] MEDS: fentaNYL Drip 2500mCg/250mlNS 250 ML IV SCH (01:14)
[2018-02-16] MEDS: MIDAZOLAM DRIP 50 mg/50mL 50 ML IV SCH ×2 (02:20→07:12)
[2018-02-16 04:41] LABS: Albumin 1.7 g/dL (3.4-5.0); Bilirubin, Total 0.7 mg/dL (0.2-1.0); Calcium 7.3 mg/dL (8.5-10.1); Magnesium 2.1 mg/dL (1.6-2.6); Phosphorus 1.4 mg/dL (2.5-4.90); Potassium 4.2 mmol/L (3.5-5.1); Total Protein 5.3 g/dL (6.4-8.2)
[2018-02-16] MEDS: ACCU-CHEK COMFORT CURVE STRIP VI SCH ×3 (06:10→17:41)
[2018-02-16] MEDS: InsuLIN REG 1unit/0.01ml Soln (100units/ml) SC SCH ×3 (06:11→17:40)
[2018-02-16] MEDS ORDERED: DEXTROSE (50%) 50ML SYRG IV SCH (07:45)
[2018-02-16] MEDS: MORPHINE SULFATE 4 MG/ML SYR/VIAL IV PRN ×2 (07:50→19:50)
[2018-02-16] MEDS ORDERED: SODIUM PHOSP 40 MEQ in D5W 5% 250 ML IV ONE (08:15)
[2018-02-16] MEDS: SODIUM CHLOR 0.9% PF (SALINE LOCK) 10ML VIAL/SYR IV SCH ×2 (08:38→22:00)
[2018-02-16] MEDS: ACETAMINOPHEN 650 mg PER 20 mL UD GT PRN ×2 (08:38→14:29)
[2018-02-16] MEDS: PANTOPRAZOLE 40 MG/10 ML VIAL IV SCH (08:38)
[2018-02-16] MEDS: cefTRIAXone 1GM/10ml IVPUSH 10 ML IV SCH (08:38)
[2018-02-16] MEDS: FLUCONAZOLE 200MG/100ML 100 ML IV SCH (09:32)
[2018-02-16 10:40] LABS: Basophils # (auto) 0.2 uL; Basophils % (auto) 0.7 % (0.0-2.0); Eosinophils # (auto) 0.3 uL; Hematocrit 30.5 % (36.0-46.0); Hemoglobin 9.8 g/dL (12.2-16.2); Lymphocytes # (auto) 2.1 uL; Lymphocytes % (auto) 8.1 % (10.0-50.0); Mean Corpuscular Hemoglobin 28.3 pg (28.0-32.0); Mean Corpuscular Hgb Conc. 32.1 g/dL (32.0-36.0); Mean Corpuscular Volume 88.3 fL (80.0-100.0); Monocytes # (auto) 1.4 uL; Monocytes % (auto) 5.5 % (0.0-12.0); Neutrophils # (auto) 21.8 uL; Neutrophils % (auto) 84.7 % (37.0-80.0); Platelet Count (auto) 271 10^3/uL (140-450); Red Blood Cells 3.46 10^6/uL (4.0-5.20); Red Cell Distribution Width 13.8 % (11.8-14.3); White Blood Cell 25.8 10^3/uL (4.4-10.8)
[2018-02-16] MEDS: VANCOMYCIN 1GM/250ML 250 ML IV SCH ×2 (12:06→20:10)
[2018-02-16] MEDS: NOREPINEPHRINE 8 MG/250ML KIT 250 ML IV SCH (15:09)
[2018-02-16] MEDS: SODIUM CHLORIDE 0.9% 1,000 ML IV SCH (17:09)
[2018-02-16] MEDS ORDERED: PROPOFOL 100 ML IV ONE (17:56)
[2018-02-16] MEDS: PROPOFOL 100 ML IV SCH (18:12)
[2018-02-16] MEDS ORDERED: TPN PER PHARMACY IV NR ×12 (20:00)
[2018-02-16] MEDS: BENAZEPRIL HCL 10 MG TAB PO SCH (22:00)
[2018-02-17] VITALS (94 sets, daily range): BP systolic 83–150; BP diastolic 38–99
[2018-02-17] MEDS: MORPHINE SULFATE 4 MG/ML SYR/VIAL IV PRN ×4 (00:05→17:50)
[2018-02-17] MEDS: ACCU-CHEK COMFORT CURVE STRIP VI SCH ×5 (00:28→23:45)
[2018-02-17] MEDS: VANCOMYCIN 1GM/250ML 250 ML IV SCH ×3 (04:00→21:07)
[2018-02-17 04:34] LABS: Basophils # (auto) 0.3 uL; Basophils % (auto) 1.2 % (0.0-2.0); Eosinophils # (auto) 0.4 uL; Hematocrit 29.7 % (36.0-46.0); Hemoglobin 9.8 g/dL (12.2-16.2); Lymphocytes # (auto) 1.7 uL; Lymphocytes % (auto) 7.9 % (10.0-50.0); Mean Corpuscular Hemoglobin 29.1 pg (28.0-32.0); Mean Corpuscular Volume 88.2 fL (80.0-100.0); Monocytes # (auto) 0.9 uL; Monocytes % (auto) 4.5 % (0.0-12.0); Neutrophils # (auto) 17.7 uL; Neutrophils % (auto) 84.4 % (37.0-80.0); Platelet Count (auto) 262 10^3/uL (140-450); Red Blood Cells 3.37 10^6/uL (4.0-5.20); Red Cell Distribution Width 13.8 % (11.8-14.3)
[2018-02-17 04:51] LABS: Albumin 1.6 g/dL (3.4-5.0); Potassium 3.9 mmol/L (3.5-5.1)
[2018-02-17 04:53] LABS: BUN/Creatinine Ratio 33.3
[2018-02-17 04:56] LABS: Bilirubin, Total 1.1 mg/dL (0.2-1.0); Total Protein 5.5 g/dL (6.4-8.2)
[2018-02-17 05:02] LABS: Magnesium 1.8 mg/dL (1.6-2.6); Phosphorus 2.6 mg/dL (2.5-4.90); Pre Albumin 7.3 mg/dL (20.0-40.0)
[2018-02-17] MEDS: InsuLIN REG 1unit/0.01ml Soln (100units/ml) SC SCH ×5 (06:00→23:45)
[2018-02-17] MEDS: cefTRIAXone 1GM/10ml IVPUSH 10 ML IV SCH (09:42)
[2018-02-17] MEDS: FLUCONAZOLE 200MG/100ML 100 ML IV SCH (09:42)
[2018-02-17] MEDS: PANTOPRAZOLE 40 MG/10 ML VIAL IV SCH (09:42)
[2018-02-17] MEDS: SODIUM CHLORIDE 0.9% 1,000 ML IV SCH ×2 (09:43→21:27)
[2018-02-17] MEDS: SODIUM CHLOR 0.9% PF (SALINE LOCK) 10ML VIAL/SYR IV SCH ×2 (10:00→21:48)
[2018-02-17] MEDS ORDERED: TPN PER PHARMACY IV NR ×13 (20:00)
[2018-02-17] MEDS: PROPOFOL 100 ML IV SCH (21:07)
[2018-02-17] MEDS: BENAZEPRIL HCL 10 MG TAB PO SCH (21:48)
[2018-02-18] VITALS (99 sets, daily range): BP systolic 64–160; BP diastolic 34–113
[2018-02-18] MEDS: PROPOFOL 100 ML IV SCH (03:22)
[2018-02-18] MEDS: MORPHINE SULFATE 4 MG/ML SYR/VIAL IV PRN ×4 (04:38→12:16)
[2018-02-18] MEDS: VANCOMYCIN 1GM/250ML 250 ML IV SCH ×3 (04:38→19:28)
[2018-02-18 05:05] LABS: Albumin 1.5 g/dL (3.4-5.0); BUN/Creatinine Ratio 33.3; Bilirubin, Total 0.7 mg/dL (0.2-1.0); Calcium 7.6 mg/dL (8.5-10.1); Magnesium 1.9 mg/dL (1.6-2.6); Phosphorus 3.6 mg/dL (2.5-4.90); Potassium 3.7 mmol/L (3.5-5.1); Total Protein 5.5 g/dL (6.4-8.2)
[2018-02-18] MEDS: ACCU-CHEK COMFORT CURVE STRIP VI SCH ×3 (05:39→18:32)
[2018-02-18] MEDS: InsuLIN REG 1unit/0.01ml Soln (100units/ml) SC SCH ×3 (05:43→18:40)
[2018-02-18] MEDS: SODIUM CHLOR 0.9% PF (SALINE LOCK) 10ML VIAL/SYR IV SCH ×2 (10:00→22:33)
[2018-02-18] MEDS: FLUCONAZOLE 200MG/100ML 100 ML IV SCH (10:20)
[2018-02-18] MEDS: PANTOPRAZOLE 40 MG/10 ML VIAL IV SCH (10:20)
[2018-02-18] MEDS: NOREPINEPHRINE 8 MG/250ML KIT 250 ML IV SCH (10:40)
[2018-02-18] MEDS ORDERED: AMIODARONE HCL 150 MG in D5W 5% 100 ML IV ONE (11:15)
[2018-02-18 11:45] LABS: INR 1.14 (0.9-1.15); Partial Thromboplastin Time 34.3 sec (22.64-33.71); Prothrombin Time 12.4 sec (9.37-12.3)
[2018-02-18] MEDS: SODIUM CHLORIDE 0.9% 1,000 ML IV SCH (12:05)
[2018-02-18] MEDS: PIPERACILLIN-TAZOB 3.375GM 100 ML IV SCH ×2 (12:16→19:28)
[2018-02-18] MEDS ORDERED: AMIODARONE HCL 900 MG in DEXTROSE 500 ML IV SCH (12:29)
[2018-02-18] MEDS ORDERED: ALBUMIN 25% 100 ML IV ONE (13:45)
[2018-02-18] MEDS ORDERED: SODIUM CHLORIDE 0.9% 500 ML IV ONE (13:45)
[2018-02-18] MEDS ORDERED: ADENOSINE 6 MG/2 ML INJ IV ONE ×2 (15:03→15:45)
[2018-02-18] MEDS ORDERED: PHENYLEPHRINE IV 250 ML IV ONE (15:07)
[2018-02-18 15:16] LABS: Basophils # (auto) 0.6 uL; Basophils % (auto) 6.5 % (0.0-2.0); Eosinophils # (auto) 0.3 uL; Hematocrit 28.7 % (36.0-46.0); Hemoglobin 9.7 g/dL (12.2-16.2); Lymphocytes # (auto) 0.9 uL; Lymphocytes % (auto) 9.8 % (10.0-50.0); Mean Corpuscular Hemoglobin 29.9 pg (28.0-32.0); Mean Corpuscular Hgb Conc. 33.8 g/dL (32.0-36.0); Mean Corpuscular Volume 88.5 fL (80.0-100.0); Monocytes # (auto) 0.8 uL; Monocytes % (auto) 8.5 % (0.0-12.0); Neutrophils # (auto) 6.9 uL; Neutrophils % (auto) 72.2 % (37.0-80.0); Nucleated Red Blood Cells % 0.1 %; Platelet Count (auto) 271 10^3/uL (140-450); Red Blood Cells 3.24 10^6/uL (4.0-5.20); Red Cell Distribution Width 13.6 % (11.8-14.3); White Blood Cell 9.5 10^3/uL (4.4-10.8)
[2018-02-18] MEDS ORDERED: ePHEDrine SULFATE 50 MG/ML AMP ONE (15:21)
[2018-02-18] MEDS ORDERED: PHENYLEPHRINE HCL 10 MG/ML VL ONE (15:21)
[2018-02-18] MEDS ORDERED: ROCURONIUM 10MG/ML 10ML VIAL IV ONE (15:24)
[2018-02-18] MEDS ORDERED: ATROPINE SULFATE 0.4 MG/1 ML VIAL ONE (15:25)
[2018-02-18] MEDS: PHENYLEPHRINE INJ 20 MG in SODIUM CHL 0.9% 250 ML IV SCH (15:30)
[2018-02-18] MEDS ORDERED: fentaNYL CITRATE 100 MCG/2 ML VL ONE (15:47)
[2018-02-18] MEDS ORDERED: MIDAZOLAM HCL 1MG/1ML-2 ML VIAL ONE ×2 (15:47→16:49)
[2018-02-18] MEDS ORDERED: POVIDONE IODINE 10 % TOPICAL OINT 30GM TOP ONE ×2 (16:41→16:44)
[2018-02-18] MEDS ORDERED: MIDAZOLAM HCL 1MG/1ML-2 ML VIAL IV PRN (17:00)
[2018-02-18] MEDS ORDERED: MORPHINE SULFATE 4 MG/ML SYR/VIAL IV PRN (17:00)
[2018-02-18] MEDS ORDERED: TPN PER PHARMACY IV NR ×9 (20:00)
[2018-02-18] MEDS: fentaNYL Drip 2500mCg/250mlNS 250 ML IV SCH (22:39)
[2018-02-18] MEDS ORDERED: fentaNYL Drip 2500mCg/250mlNS 250 ML IV ONE (22:39)
[2018-02-19] VITALS (95 sets, daily range): BP systolic 74–137; BP diastolic 39–88
[2018-02-19] MEDS: InsuLIN REG 1unit/0.01ml Soln (100units/ml) SC SCH ×4 (00:04→18:00)
[2018-02-19] MEDS: ACCU-CHEK COMFORT CURVE STRIP VI SCH ×4 (00:04→18:00)
[2018-02-19] MEDS ORDERED: ACETAMINOPHEN IV 1000 MG/100ML (10MG/ML) IV ONE ×2 (01:45→09:30)
[2018-02-19] MEDS ORDERED: ACETAMINOPHEN IV 100 ML IV ONE (01:53)
[2018-02-19] MEDS: SODIUM CHLORIDE 0.9% 1,000 ML IV SCH ×2 (02:05→16:31)
[2018-02-19] MEDS ORDERED: PHENYLEPHRINE IV 250 ML IV ONE ×2 (02:37→05:06)
[2018-02-19] MEDS: PHENYLEPHRINE INJ 20 MG in SODIUM CHL 0.9% 250 ML IV SCH ×2 (02:41→09:43)
[2018-02-19] MEDS: PIPERACILLIN-TAZOB 3.375GM 100 ML IV SCH ×3 (03:29→19:19)
[2018-02-19] MEDS: VANCOMYCIN 1GM/250ML 250 ML IV SCH ×3 (03:30→19:16)
[2018-02-19 04:34] LABS: Hemoglobin 9.7 g/dL (12.2-16.2); Mean Corpuscular Hemoglobin 29.3 pg (28.0-32.0); Mean Corpuscular Hgb Conc. 33.3 g/dL (32.0-36.0); Mean Corpuscular Volume 87.9 fL (80.0-100.0); Platelet Count (auto) 288 10^3/uL (140-450); Red Cell Distribution Width 13.5 % (11.8-14.3); White Blood Cell 14.7 10^3/uL (4.4-10.8)
[2018-02-19 04:41] LABS: Albumin 1.5 g/dL (3.4-5.0); BUN/Creatinine Ratio 32.3; Bilirubin, Total 1.2 mg/dL (0.2-1.0); Calcium 6.9 mg/dL (8.5-10.1); Magnesium 2.1 mg/dL (1.6-2.6); Phosphorus 3.5 mg/dL (2.5-4.90); Potassium 3.9 mmol/L (3.5-5.1); Total Protein 4.8 g/dL (6.4-8.2)
[2018-02-19 05:00] LABS: Band Neutrophils % (manual) 0; Basophils % (manual) 0 (0.0-2.0); Blast Cells 0; Eosinophils % (manual) 0 (0-7); Myelocytes % 0; Promyelocytes % 0; Reactive Lymphocytes 0
[2018-02-19 09:14] LABS: Lymphocytes % (manual) 6 (10.0-50.0); Metamyelocytes % 1; Monocytes % (manual) 5 (0-12)
[2018-02-19] MEDS: SODIUM CHLOR 0.9% PF (SALINE LOCK) 10ML VIAL/SYR IV SCH ×2 (10:00→23:14)
[2018-02-19] MEDS: PANTOPRAZOLE 40 MG/10 ML VIAL IV SCH (10:20)
[2018-02-19] MEDS: NOREPINEPHRINE 8 MG/250ML KIT 250 ML IV SCH (10:20)
[2018-02-19] MEDS: FLUCONAZOLE 200MG/100ML 100 ML IV SCH (10:20)
[2018-02-19] MEDS: PHENYLEPHRINE INJ 20 MG in D5W 5% 250 ML IV SCH ×2 (14:15→23:14)
[2018-02-19] MEDS: PROPOFOL 100 ML IV SCH ×3 (17:42→23:14)
[2018-02-19] MEDS: AMIODARONE HCL 900 MG in DEXTROSE 500 ML IV SCH (19:41)
[2018-02-19] MEDS ORDERED: TPN PER PHARMACY IV NR ×9 (20:00)
[2018-02-20] VITALS (95 sets, daily range): BP systolic 81–155; BP diastolic 41–81
[2018-02-20] MEDS: InsuLIN REG 1unit/0.01ml Soln (100units/ml) SC SCH ×4 (00:32→17:23)
[2018-02-20] MEDS: ACCU-CHEK COMFORT CURVE STRIP VI SCH ×4 (00:32→17:23)
[2018-02-20] MEDS: VANCOMYCIN 1GM/250ML 250 ML IV SCH ×3 (03:30→20:19)
[2018-02-20] MEDS: PROPOFOL 100 ML IV SCH ×2 (03:30→07:36)
[2018-02-20] MEDS: PIPERACILLIN-TAZOB 3.375GM 100 ML IV SCH ×3 (03:30→23:00)
[2018-02-20 04:25] LABS: Magnesium 2.2 mg/dL (1.6-2.6); Phosphorus 4.2 mg/dL (2.5-4.90)
[2018-02-20 04:28] LABS: Calcium 7.7 mg/dL (8.5-10.1); Hematocrit 26.2 % (36.0-46.0); Hemoglobin 8.6 g/dL (12.2-16.2); Mean Corpuscular Hgb Conc. 32.8 g/dL (32.0-36.0); Mean Corpuscular Volume 88.4 fL (80.0-100.0); Platelet Count (auto) 274 10^3/uL (140-450); Potassium 4.1 mmol/L (3.5-5.1); Red Blood Cells 2.97 10^6/uL (4.0-5.20); Red Cell Distribution Width 14.1 % (11.8-14.3); White Blood Cell 12.6 10^3/uL (4.4-10.8)
[2018-02-20 04:31] LABS: Albumin 1.2 g/dL (3.4-5.0)
[2018-02-20 04:45] LABS: Bilirubin, Total 1.2 mg/dL (0.2-1.0); Total Protein 4.6 g/dL (6.4-8.2)
[2018-02-20 04:48] LABS: Basophils % (manual) 0 (0.0-2.0); Blast Cells 0; Myelocytes % 0; Promyelocytes % 0
[2018-02-20 05:26] LABS: Band Neutrophils % (manual) 10; Eosinophils % (manual) 5 (0-7); Lymphocytes % (manual) 8 (10.0-50.0); Metamyelocytes % 3; Monocytes % (manual) 9 (0-12); Reactive Lymphocytes 1
[2018-02-20] MEDS: SODIUM CHLORIDE 0.9% 1,000 ML IV SCH (06:39)
[2018-02-20] MEDS: PHENYLEPHRINE INJ 20 MG in D5W 5% 250 ML IV SCH ×3 (07:35→15:46)
[2018-02-20] MEDS: fentaNYL Drip 2500mCg/250mlNS 250 ML IV SCH (07:35)
[2018-02-20] MEDS: NOREPINEPHRINE 8 MG/250ML KIT 250 ML IV SCH (10:20)
[2018-02-20] MEDS: SODIUM CHLOR 0.9% PF (SALINE LOCK) 10ML VIAL/SYR IV SCH ×2 (10:23→22:00)
[2018-02-20] MEDS ORDERED: PHENYLEPHRINE IV 250 ML IV ONE (10:24)
[2018-02-20] MEDS: FLUCONAZOLE 200MG/100ML 100 ML IV SCH (11:11)
[2018-02-20] MEDS: PANTOPRAZOLE 40 MG/10 ML VIAL IV SCH (11:11)
[2018-02-20] MEDS ORDERED: ENOXAPARIN SOD 40 MG/0.4 ML SYRINGE SC ONE (11:15)
[2018-02-20] MEDS: MIDAZOLAM DRIP 50 mg/50mL 50 ML IV SCH ×2 (11:48→18:30)
[2018-02-20] MEDS: ALBUMIN 25% 50 ML IV SCH ×2 (13:54→20:16)
[2018-02-20] MEDS: NOREPINEPHRINE 16 MG/500ML KIT 500 ML IV SCH (15:00)
[2018-02-20] MEDS: AMIODARONE HCL 900 MG in DEXTROSE 500 ML IV SCH (19:41)
[2018-02-20] MEDS ORDERED: TPN PER PHARMACY IV NR ×9 (20:00)
[2018-02-21] VITALS (103 sets, daily range): BP systolic 90–149; BP diastolic 41–110
[2018-02-21] MEDS: ACCU-CHEK COMFORT CURVE STRIP VI SCH ×4 (01:15→18:00)
[2018-02-21] MEDS: InsuLIN REG 1unit/0.01ml Soln (100units/ml) SC SCH ×4 (01:15→18:00)
[2018-02-21] MEDS ORDERED: ACETAMINOPHEN IV 100 ML IV ONE ×2 (01:25→20:29)
[2018-02-21] MEDS ORDERED: PHENYLEPHRINE IV 250 ML IV ONE (02:44)
[2018-02-21] MEDS: ALBUMIN 25% 50 ML IV SCH (03:15)
[2018-02-21] MEDS: VANCOMYCIN 1GM/250ML 250 ML IV SCH ×3 (04:34→23:00)
[2018-02-21 05:14] LABS: Mean Corpuscular Hemoglobin 29.4 pg (28.0-32.0)
[2018-02-21 05:17] LABS: Hematocrit 21.8 % (36.0-46.0); Hemoglobin 7.3 g/dL (12.2-16.2); Mean Corpuscular Hgb Conc. 33.6 g/dL (32.0-36.0); Mean Corpuscular Volume 87.5 fL (80.0-100.0); Platelet Count (auto) 218 10^3/uL (140-450); Red Blood Cells 2.49 10^6/uL (4.0-5.20); Red Cell Distribution Width 13.8 % (11.8-14.3); White Blood Cell 8.5 10^3/uL (4.4-10.8)
[2018-02-21 05:23] LABS: Basophils % (manual) 0 (0.0-2.0); Blast Cells 0; Promyelocytes % 0; Reactive Lymphocytes 0
[2018-02-21 05:30] LABS: Albumin 1.4 g/dL (3.4-5.0); BUN/Creatinine Ratio 35.5; Bilirubin, Total 1.5 mg/dL (0.2-1.0); Calcium 7.4 mg/dL (8.5-10.1); Magnesium 2.2 mg/dL (1.6-2.6); Phosphorus 3.9 mg/dL (2.5-4.90); Potassium 4.1 mmol/L (3.5-5.1); Total Protein 4.7 g/dL (6.4-8.2)
[2018-02-21] MEDS: PIPERACILLIN-TAZOB 3.375GM 100 ML IV SCH ×3 (06:24→20:09)
[2018-02-21 06:58] LABS: Band Neutrophils % (manual) 12; Eosinophils % (manual) 6 (0-7); Lymphocytes % (manual) 13 (10.0-50.0); Metamyelocytes % 3; Monocytes % (manual) 10 (0-12); Myelocytes % 2
[2018-02-21] MEDS: MIDAZOLAM DRIP 50 mg/50mL 50 ML IV SCH (07:30)
[2018-02-21] MEDS: fentaNYL Drip 2500mCg/250mlNS 250 ML IV SCH ×2 (07:30→19:55)
[2018-02-21] MEDS: PHENYLEPHRINE INJ 20 MG in D5W 5% 250 ML IV SCH ×2 (07:55→16:15)
[2018-02-21] MEDS: SODIUM CHLORIDE 0.9% 1,000 ML IV SCH ×2 (09:42→11:34)
[2018-02-21] MEDS: SODIUM CHLOR 0.9% PF (SALINE LOCK) 10ML VIAL/SYR IV SCH ×2 (10:00→22:05)
[2018-02-21] MEDS: FLUCONAZOLE 200MG/100ML 100 ML IV SCH (10:50)
[2018-02-21] MEDS: PANTOPRAZOLE 40 MG/10 ML VIAL IV SCH (10:50)
[2018-02-21] MEDS: ENOXAPARIN SOD 40 MG/0.4 ML SYRINGE SC SCH (10:50)
[2018-02-21] MEDS: NOREPINEPHRINE 16 MG/500ML KIT 500 ML IV SCH (15:00)
[2018-02-21] MEDS: PROPOFOL 100 ML IV SCH (17:08)
[2018-02-21] MEDS ORDERED: TPN PER PHARMACY IV NR ×11 (20:00)
[2018-02-22] VITALS (102 sets, daily range): BP systolic 104–151; BP diastolic 48–85
[2018-02-22] MEDS: PIPERACILLIN-TAZOB 3.375GM 100 ML IV SCH ×3 (04:20→19:59)
[2018-02-22 05:13] LABS: Basophils # (auto) 0.1 uL; Basophils % (auto) 0.7 % (0.0-2.0); Eosinophils # (auto) 0.4 uL; Eosinophils % (auto) 4.1 % (0.0-7.0); Hematocrit 28.7 % (36.0-46.0); Hemoglobin 9.6 g/dL (12.2-16.2); Lymphocytes # (auto) 2.6 uL; Lymphocytes % (auto) 24.6 % (10.0-50.0); Mean Corpuscular Hemoglobin 29.8 pg (28.0-32.0); Mean Corpuscular Hgb Conc. 33.4 g/dL (32.0-36.0); Mean Corpuscular Volume 89.2 fL (80.0-100.0); Monocytes # (auto) 0.9 uL; Monocytes % (auto) 8.6 % (0.0-12.0); Neutrophils # (auto) 6.5 uL; Nucleated Red Blood Cells % 0.1 %; Platelet Count (auto) 235 10^3/uL (140-450); Red Blood Cells 3.22 10^6/uL (4.0-5.20); Red Cell Distribution Width 14.1 % (11.8-14.3); White Blood Cell 10.5 10^3/uL (4.4-10.8)
[2018-02-22] MEDS: VANCOMYCIN 1GM/250ML 250 ML IV SCH ×3 (05:30→19:59)
[2018-02-22 05:34] LABS: Albumin 1.3 g/dL (3.4-5.0); BUN/Creatinine Ratio 28.2; Bilirubin, Total 2.1 mg/dL (0.2-1.0); Potassium 4.3 mmol/L (3.5-5.1); Total Protein 5.2 g/dL (6.4-8.2)
[2018-02-22 05:44] LABS: Phosphorus 5.2 mg/dL (2.5-4.90)
[2018-02-22] MEDS: InsuLIN REG 1unit/0.01ml Soln (100units/ml) SC SCH ×4 (06:00→17:25)
[2018-02-22] MEDS: ACCU-CHEK COMFORT CURVE STRIP VI SCH ×4 (06:28→17:25)
[2018-02-22] MEDS ORDERED: VASELINE LIP THERAPY 10gm TOP PRN (07:30)
[2018-02-22] MEDS: MIDAZOLAM DRIP 50 mg/50mL 50 ML IV SCH ×2 (08:55→15:51)
[2018-02-22] MEDS: ENOXAPARIN SOD 40 MG/0.4 ML SYRINGE SC SCH (09:26)
[2018-02-22] MEDS: PANTOPRAZOLE 40 MG/10 ML VIAL IV SCH (09:26)
[2018-02-22] MEDS: SODIUM CHLOR 0.9% PF (SALINE LOCK) 10ML VIAL/SYR IV SCH ×2 (09:26→22:00)
[2018-02-22] MEDS: FLUCONAZOLE 200MG/100ML 100 ML IV SCH (09:26)
[2018-02-22] MEDS ORDERED: FUROSEMIDE 20 MG/2 ML VIAL IV ONE (12:00)
[2018-02-22] MEDS ORDERED: Fibersource Hn 1 Liter GT SCH (12:00)
[2018-02-22] MEDS: ACETAMINOPHEN 650 mg PER 20 mL UD GT PRN (15:51)
[2018-02-22] MEDS ORDERED: TPN PER PHARMACY IV NR ×9 (20:00)
[2018-02-22] MEDS ORDERED: ADENOSINE 6 MG/2 ML INJ IV ONE (21:17)
[2018-02-23] VITALS (94 sets, daily range): BP systolic 81–165; BP diastolic 45–97
[2018-02-23] MEDS: MIDAZOLAM DRIP 50 mg/50mL 50 ML IV SCH ×2 (01:05→06:00)
[2018-02-23] MEDS: VANCOMYCIN 1GM/250ML 250 ML IV SCH ×3 (04:00→21:00)
[2018-02-23] MEDS: MORPHINE SULFATE 4 MG/ML SYR/VIAL IV PRN ×2 (04:00→11:42)
[2018-02-23] MEDS: PIPERACILLIN-TAZOB 3.375GM 100 ML IV SCH ×3 (04:00→22:00)
[2018-02-23 04:20] LABS: Hematocrit 29.4 % (36.0-46.0); Hemoglobin 9.7 g/dL (12.2-16.2); Mean Corpuscular Hemoglobin 29.1 pg (28.0-32.0); Mean Corpuscular Hgb Conc. 32.9 g/dL (32.0-36.0); Mean Corpuscular Volume 88.4 fL (80.0-100.0); Platelet Count (auto) 253 10^3/uL (140-450); Red Blood Cells 3.33 10^6/uL (4.0-5.20); Red Cell Distribution Width 14.5 % (11.8-14.3); White Blood Cell 11.3 10^3/uL (4.4-10.8)
[2018-02-23 04:40] LABS: Basophils % (manual) 0 (0.0-2.0); Blast Cells 0; Metamyelocytes % 0; Myelocytes % 0; Promyelocytes % 0; Reactive Lymphocytes 0
[2018-02-23 04:51] LABS: Albumin 1.4 g/dL (3.4-5.0); BUN/Creatinine Ratio 27.9; Bilirubin, Total 1.9 mg/dL (0.2-1.0); Calcium 8.1 mg/dL (8.5-10.1); Magnesium 2.2 mg/dL (1.6-2.6); Phosphorus 4.1 mg/dL (2.5-4.90); Pre Albumin 8.4 mg/dL (20.0-40.0); Total Protein 5.7 g/dL (6.4-8.2)
[2018-02-23] MEDS: InsuLIN REG 1unit/0.01ml Soln (100units/ml) SC SCH ×2 (06:00)
[2018-02-23] MEDS: ACCU-CHEK COMFORT CURVE STRIP VI SCH ×2 (06:00)
[2018-02-23 07:16] LABS: Band Neutrophils % (manual) 3; Eosinophils % (manual) 2 (0-7); Lymphocytes % (manual) 20 (10.0-50.0); Monocytes % (manual) 10 (0-12)
[2018-02-23] MEDS ORDERED: TPN PER PHARMACY IV SCH ×8 (10:00)
[2018-02-23] MEDS: SODIUM CHLOR 0.9% PF (SALINE LOCK) 10ML VIAL/SYR IV SCH ×2 (10:00→22:18)
[2018-02-23] MEDS: FLUCONAZOLE 200MG/100ML 100 ML IV SCH (10:15)
[2018-02-23] MEDS: PANTOPRAZOLE 40 MG/10 ML VIAL IV SCH (10:15)
[2018-02-23] MEDS: ENOXAPARIN SOD 40 MG/0.4 ML SYRINGE SC SCH (11:00)
[2018-02-23] MEDS ORDERED: MORPHINE SULFATE INJECTION 1 ML ONE (11:14)
[2018-02-23] MEDS ORDERED: FUROSEMIDE 40 MG/4 ML VIAL IV ONE (11:15)
[2018-02-23] MEDS ORDERED: POTASSIUM CHL 10% (20 MEQ/15ML) 15ml ORAL SOLN GT ONE (11:15)
[2018-02-23] MEDS ORDERED: Fibersource Hn 1 Liter GT SCH (12:00)
[2018-02-23] MEDS: fentaNYL Drip 2500mCg/250mlNS 250 ML IV SCH (13:49)
[2018-02-23] MEDS ORDERED: TPN PER PHARMACY IV NR ×8 (20:00)
[2018-02-24] VITALS (79 sets, daily range): BP systolic 83–151; BP diastolic 34–97
[2018-02-24] MEDS: VANCOMYCIN 1GM/250ML 250 ML IV SCH ×3 (04:42→20:29)
[2018-02-24 05:48] LABS: Hematocrit 29.8 % (36.0-46.0); Mean Corpuscular Hemoglobin 29.4 pg (28.0-32.0); Mean Corpuscular Hgb Conc. 33.6 g/dL (32.0-36.0); Mean Corpuscular Volume 87.5 fL (80.0-100.0); Platelet Count (auto) 210 10^3/uL (140-450); Red Blood Cells 3.41 10^6/uL (4.0-5.20); Red Cell Distribution Width 14.2 % (11.8-14.3); White Blood Cell 12.5 10^3/uL (4.4-10.8)
[2018-02-24 05:59] LABS: Basophils % (manual) 0 (0.0-2.0); Blast Cells 0; Metamyelocytes % 0; Promyelocytes % 0; Reactive Lymphocytes 0
[2018-02-24 06:08] LABS: Albumin 1.5 g/dL (3.4-5.0); Magnesium 1.9 mg/dL (1.6-2.6); Potassium 4.1 mmol/L (3.5-5.1)
[2018-02-24 06:10] LABS: BUN/Creatinine Ratio 37.9; Calcium 8.4 mg/dL (8.5-10.1)
[2018-02-24 06:24] LABS: Bilirubin, Total 1.5 mg/dL (0.2-1.0); Phosphorus 3.6 mg/dL (2.5-4.90)
[2018-02-24] MEDS: PIPERACILLIN-TAZOB 3.375GM 100 ML IV SCH ×3 (06:30→20:30)
[2018-02-24 06:50] LABS: Band Neutrophils % (manual) 2; Eosinophils % (manual) 1 (0-7); Lymphocytes % (manual) 15 (10.0-50.0); Monocytes % (manual) 12 (0-12); Myelocytes % 1
[2018-02-24] MEDS: MIDAZOLAM DRIP 50 mg/50mL 50 ML IV SCH ×2 (08:30→14:34)
[2018-02-24] MEDS ORDERED: ALBUMIN 25% 100 ML IV ONE (09:41)
[2018-02-24] MEDS ORDERED: TPN PER PHARMACY 0 ML IV SCH (09:45)
[2018-02-24] MEDS ORDERED: ALBUMIN 25% 100 ML IV SCH ×2 (09:45→18:00)
[2018-02-24] MEDS: PANTOPRAZOLE 40 MG/10 ML VIAL IV SCH (09:47)
[2018-02-24] MEDS: FLUCONAZOLE 200MG/100ML 100 ML IV SCH (09:47)
[2018-02-24] MEDS: ENOXAPARIN SOD 40 MG/0.4 ML SYRINGE SC SCH (09:48)
[2018-02-24] MEDS: SODIUM CHLOR 0.9% PF (SALINE LOCK) 10ML VIAL/SYR IV SCH ×2 (10:05→22:18)
[2018-02-24] MEDS ORDERED: ADENOSINE 6 MG/2 ML INJ IV ONE (10:45)
[2018-02-24] MEDS: fentaNYL Drip 2500mCg/250mlNS 250 ML IV SCH (11:11)
[2018-02-24] MEDS ORDERED: DIGOXIN (250MCG/ML) 2 ML AMPULE IV ONE (11:30)
[2018-02-24] MEDS: ALBUMIN 25% 100 ML IV SCH ×2 (16:40→23:00)
[2018-02-24] MEDS ORDERED: DEXTROSE (50%) 50ML SYRG IV SCH (20:00)
[2018-02-24] MEDS ORDERED: TPN PER PHARMACY IV NR ×8 (20:00)
[2018-02-24] MEDS ORDERED: MORPHINE SULFATE 8mg/ml INJ SDV IV PRN (21:45)
[2018-02-25] VITALS (104 sets, daily range): BP systolic 91–141; BP diastolic 50–87
[2018-02-25] MEDS: ACCU-CHEK COMFORT CURVE STRIP VI SCH ×5 (00:16→23:57)
[2018-02-25] MEDS: InsuLIN REG 1unit/0.01ml Soln (100units/ml) SC SCH ×5 (00:19→23:57)
[2018-02-25] MEDS ORDERED: ADENOSINE 6 MG/2 ML INJ IV ONE ×2 (04:02→13:46)
[2018-02-25] MEDS: PIPERACILLIN-TAZOB 3.375GM 100 ML IV SCH ×3 (04:32→20:08)
[2018-02-25] MEDS: VANCOMYCIN 1GM/250ML 250 ML IV SCH ×3 (04:32→20:09)
[2018-02-25 04:54] LABS: Albumin 2.4 g/dL (3.4-5.0); BUN/Creatinine Ratio 23.3; Bilirubin, Total 1.4 mg/dL (0.2-1.0); Calcium 8.5 mg/dL (8.5-10.1); Magnesium 2.2 mg/dL (1.6-2.6); Phosphorus 4.9 mg/dL (2.5-4.90); Potassium 3.7 mmol/L (3.5-5.1); Total Protein 6.4 g/dL (6.4-8.2)
[2018-02-25] MEDS: MIDAZOLAM DRIP 50 mg/50mL 50 ML IV SCH ×3 (05:17→23:38)
[2018-02-25] MEDS: FLUCONAZOLE 200MG/100ML 100 ML IV SCH (09:22)
[2018-02-25] MEDS: PANTOPRAZOLE 40 MG/10 ML VIAL IV SCH (09:22)
[2018-02-25] MEDS: SODIUM CHLOR 0.9% PF (SALINE LOCK) 10ML VIAL/SYR IV SCH ×2 (09:23→22:01)
[2018-02-25] MEDS: ENOXAPARIN SOD 40 MG/0.4 ML SYRINGE SC SCH (09:23)
[2018-02-25] MEDS: DIGOXIN (250MCG/ML) 2 ML AMPULE IV SCH (09:24)
[2018-02-25] MEDS: fentaNYL Drip 2500mCg/250mlNS 250 ML IV SCH ×2 (11:58→23:37)
[2018-02-25] MEDS ORDERED: AMIODARONE HCL (50 MG/ ML) 3 ML VIAL IV ONE ×2 (13:52→14:01)
[2018-02-25] MEDS ORDERED: AMIODARONE HCL 150 MG in D5W 5% 100 ML IV ONE (14:00)
[2018-02-25] MEDS ORDERED: AMIODARONE HCL 900 MG in DEXTROSE 500 ML IV SCH (14:03)
[2018-02-25] MEDS: NOREPINEPHRINE 16 MG/500ML KIT 500 ML IV SCH (16:07)
[2018-02-25] MEDS ORDERED: TPN PER PHARMACY IV NR ×7 (20:00)
[2018-02-25] MEDS: AMIODARONE HCL 900 MG in DEXTROSE 500 ML IV SCH (20:08)
[2018-02-26] VITALS (97 sets, daily range): BP systolic 83–141; BP diastolic 45–81
[2018-02-26] MEDS: MIDAZOLAM DRIP 50 mg/50mL 50 ML IV SCH ×2 (03:04→13:19)
[2018-02-26] MEDS: VANCOMYCIN 1GM/250ML 250 ML IV SCH ×3 (03:19→20:15)
[2018-02-26] MEDS: PIPERACILLIN-TAZOB 3.375GM 100 ML IV SCH ×3 (04:15→20:16)
[2018-02-26 04:38] LABS: Basophils # (auto) 0 uL; Basophils % (auto) 0.5 % (0.0-2.0); Eosinophils # (auto) 0.4 uL; Eosinophils % (auto) 4.2 % (0.0-7.0); Hematocrit 29.6 % (36.0-46.0); Hemoglobin 9.8 g/dL (12.2-16.2); Lymphocytes # (auto) 2.1 uL; Lymphocytes % (auto) 22.9 % (10.0-50.0); Mean Corpuscular Hemoglobin 29.2 pg (28.0-32.0); Mean Corpuscular Hgb Conc. 33.1 g/dL (32.0-36.0); Mean Corpuscular Volume 88.4 fL (80.0-100.0); Monocytes % (auto) 10.9 % (0.0-12.0); Neutrophils # (auto) 5.8 uL; Neutrophils % (auto) 61.5 % (37.0-80.0); Nucleated Red Blood Cells % 0.1 %; Platelet Count (auto) 221 10^3/uL (140-450); Red Blood Cells 3.35 10^6/uL (4.0-5.20); Red Cell Distribution Width 14.2 % (11.8-14.3); White Blood Cell 9.4 10^3/uL (4.4-10.8)
[2018-02-26 04:52] LABS: Albumin 2.1 g/dL (3.4-5.0); BUN/Creatinine Ratio 28.9; Calcium 8.2 mg/dL (8.5-10.1); Magnesium 2.3 mg/dL (1.6-2.6); Phosphorus 3.2 mg/dL (2.5-4.90); Potassium 3.9 mmol/L (3.5-5.1); Total Protein 6.4 g/dL (6.4-8.2)
[2018-02-26] MEDS: ACCU-CHEK COMFORT CURVE STRIP VI SCH ×3 (06:22→18:00)
[2018-02-26] MEDS: InsuLIN REG 1unit/0.01ml Soln (100units/ml) SC SCH ×3 (06:23→18:00)
[2018-02-26] MEDS ORDERED: ENOXAPARIN SOD 40 MG/0.4 ML SYRINGE SC SCH (10:00)
[2018-02-26] MEDS: ENOXAPARIN SOD 100 MG/1 ML SYRINGE SC SCH ×2 (11:00→22:26)
[2018-02-26] MEDS: DIGOXIN (250MCG/ML) 2 ML AMPULE IV SCH (11:23)
[2018-02-26] MEDS: FLUCONAZOLE 200MG/100ML 100 ML IV SCH (11:23)
[2018-02-26] MEDS: SODIUM CHLOR 0.9% PF (SALINE LOCK) 10ML VIAL/SYR IV SCH ×2 (11:23→22:24)
[2018-02-26] MEDS: PANTOPRAZOLE 40 MG/10 ML VIAL IV SCH (11:23)
[2018-02-26] MEDS: NOREPINEPHRINE 16 MG/500ML KIT 500 ML IV SCH ×2 (16:07→21:00)
[2018-02-26] MEDS ORDERED: TPN PER PHARMACY IV NR ×8 (20:00)
[2018-02-26] MEDS: AMIODARONE HCL 900 MG in DEXTROSE 500 ML IV SCH (20:03)
[2018-02-27] VITALS (103 sets, daily range): BP systolic 91–148; BP diastolic 46–86
[2018-02-27] MEDS: MIDAZOLAM DRIP 50 mg/50mL 50 ML IV SCH ×2 (01:10→06:46)
[2018-02-27] MEDS: VANCOMYCIN 1GM/250ML 250 ML IV SCH ×3 (03:30→20:46)
[2018-02-27 04:06] LABS: Hematocrit 30.2 % (36.0-46.0); Hemoglobin 10.1 g/dL (12.2-16.2); Mean Corpuscular Hemoglobin 29.5 pg (28.0-32.0); Mean Corpuscular Hgb Conc. 33.5 g/dL (32.0-36.0); Platelet Count (auto) 221 10^3/uL (140-450); Red Blood Cells 3.43 10^6/uL (4.0-5.20); Red Cell Distribution Width 14.2 % (11.8-14.3); White Blood Cell 10.2 10^3/uL (4.4-10.8)
[2018-02-27 04:17] LABS: Albumin 1.9 g/dL (3.4-5.0); BUN/Creatinine Ratio 35.1; Calcium 8.1 mg/dL (8.5-10.1); Magnesium 2.1 mg/dL (1.6-2.6); Potassium 4.2 mmol/L (3.5-5.1)
[2018-02-27 04:19] LABS: Bilirubin, Total 1.1 mg/dL (0.2-1.0); Total Protein 6.5 g/dL (6.4-8.2)
[2018-02-27 04:24] LABS: Basophils % (manual) 0 (0.0-2.0); Blast Cells 0; Myelocytes % 0; Promyelocytes % 0; Reactive Lymphocytes 0
[2018-02-27] MEDS: PIPERACILLIN-TAZOB 3.375GM 100 ML IV SCH ×3 (04:30→20:45)
[2018-02-27 04:32] LABS: Phosphorus 3.7 mg/dL (2.5-4.90)
[2018-02-27 05:03] LABS: Band Neutrophils % (manual) 3; Eosinophils % (manual) 1 (0-7); Lymphocytes % (manual) 33 (10.0-50.0); Metamyelocytes % 1; Monocytes % (manual) 14 (0-12)
[2018-02-27] MEDS: InsuLIN REG 1unit/0.01ml Soln (100units/ml) SC SCH ×4 (06:00→18:00)
[2018-02-27] MEDS: ACCU-CHEK COMFORT CURVE STRIP VI SCH ×4 (06:03→18:36)
[2018-02-27] MEDS: SODIUM CHLOR 0.9% PF (SALINE LOCK) 10ML VIAL/SYR IV SCH ×2 (10:00→22:00)
[2018-02-27] MEDS: fentaNYL Drip 2500mCg/250mlNS 250 ML IV SCH ×2 (10:30→22:54)
[2018-02-27] MEDS: PANTOPRAZOLE 40 MG/10 ML VIAL IV SCH (10:55)
[2018-02-27] MEDS: DIGOXIN (250MCG/ML) 2 ML AMPULE IV SCH (10:55)
[2018-02-27] MEDS: FLUCONAZOLE 200MG/100ML 100 ML IV SCH (10:55)
[2018-02-27] MEDS: ENOXAPARIN SOD 100 MG/1 ML SYRINGE SC SCH ×2 (10:55→22:53)
[2018-02-27] MEDS ORDERED: TPN PER PHARMACY IV NR ×9 (20:00)
[2018-02-27] MEDS: METOCLOPRAMIDE HCL 5MG/ml INJ 2ml VIAL IV SCH (22:00)
[2018-02-28] VITALS (106 sets, daily range): BP systolic 81–140; BP diastolic 37–106
[2018-02-28] MEDS: AMIODARONE HCL 900 MG in DEXTROSE 500 ML IV SCH (01:30)
[2018-02-28 03:59] LABS: Basophils # (auto) 0.1 uL; Basophils % (auto) 0.5 % (0.0-2.0); Eosinophils # (auto) 0.3 uL; Eosinophils % (auto) 2.4 % (0.0-7.0); Hematocrit 29.4 % (36.0-46.0); Hemoglobin 9.6 g/dL (12.2-16.2); Lymphocytes # (auto) 2.5 uL; Lymphocytes % (auto) 18.2 % (10.0-50.0); Mean Corpuscular Hemoglobin 28.8 pg (28.0-32.0); Mean Corpuscular Hgb Conc. 32.8 g/dL (32.0-36.0); Mean Corpuscular Volume 87.7 fL (80.0-100.0); Monocytes # (auto) 1.2 uL; Monocytes % (auto) 8.9 % (0.0-12.0); Neutrophils # (auto) 9.7 uL; Platelet Count (auto) 234 10^3/uL (140-450); Red Blood Cells 3.35 10^6/uL (4.0-5.20); Red Cell Distribution Width 14.2 % (11.8-14.3); White Blood Cell 13.9 10^3/uL (4.4-10.8)
[2018-02-28 04:09] LABS: Albumin 1.9 g/dL (3.4-5.0); BUN/Creatinine Ratio 39.3; Calcium 8.5 mg/dL (8.5-10.1); Potassium 3.9 mmol/L (3.5-5.1); Total Protein 6.6 g/dL (6.4-8.2)
[2018-02-28 05:05] LABS: Magnesium 1.9 mg/dL (1.6-2.6); Phosphorus 3.6 mg/dL (2.5-4.90)
[2018-02-28 05:11] LABS: Pre Albumin 11.8 mg/dL (20.0-40.0)
[2018-02-28] MEDS: MIDAZOLAM DRIP 50 mg/50mL 50 ML IV SCH ×3 (05:40→21:20)
[2018-02-28] MEDS: VANCOMYCIN 1GM/250ML 250 ML IV SCH ×3 (05:41→21:20)
[2018-02-28] MEDS: PIPERACILLIN-TAZOB 3.375GM 100 ML IV SCH ×3 (05:47→19:55)
[2018-02-28] MEDS: InsuLIN REG 1unit/0.01ml Soln (100units/ml) SC SCH ×4 (06:00→18:38)
[2018-02-28] MEDS: ACCU-CHEK COMFORT CURVE STRIP VI SCH ×4 (06:00→18:38)
[2018-02-28] MEDS: METOCLOPRAMIDE HCL 5MG/ml INJ 2ml VIAL IV SCH ×3 (06:00→22:55)
[2018-02-28] MEDS: ENOXAPARIN SOD 100 MG/1 ML SYRINGE SC SCH ×2 (10:30→22:55)
[2018-02-28] MEDS: DIGOXIN (250MCG/ML) 2 ML AMPULE IV SCH (10:35)
[2018-02-28] MEDS ORDERED: VANCOMYCIN PER PHARMACY 0 MG IV SCH (11:30)
[2018-02-28] MEDS ORDERED: ACETAMINOPHEN 650 mg PER 20 mL UD GT PRN (11:30)
[2018-02-28] MEDS ORDERED: IOHEXOL 300 MG/ML 100ML BOTTLE IJ ONE (11:31)
[2018-02-28] MEDS ORDERED: VANCOMYCIN 1GM/250ML 250 ML IV SCH (12:00)
[2018-02-28] MEDS: NOREPINEPHRINE 16 MG/500ML KIT 500 ML IV SCH (16:07)
[2018-02-28] MEDS ORDERED: TPN PER PHARMACY IV NR ×9 (20:00)
[2018-02-28] MEDS: fentaNYL Drip 2500mCg/250mlNS 250 ML IV SCH (21:20)
[2018-02-28] MEDS: SODIUM CHLOR 0.9% PF (SALINE LOCK) 10ML VIAL/SYR IV SCH (22:00)
[2018-03-01] VITALS (53 sets, daily range): BP systolic 85–131; BP diastolic 31–90
[2018-03-01] MEDS: PIPERACILLIN-TAZOB 3.375GM 100 ML IV SCH ×2 (04:00→12:00)
[2018-03-01 04:04] LABS: Basophils # (auto) 0.1 uL; Basophils % (auto) 0.5 % (0.0-2.0); Eosinophils # (auto) 0.5 uL; Eosinophils % (auto) 3.1 % (0.0-7.0); Hematocrit 30.3 % (36.0-46.0); Lymphocytes # (auto) 2.4 uL; Lymphocytes % (auto) 15.1 % (10.0-50.0); Mean Corpuscular Hemoglobin 28.6 pg (28.0-32.0); Mean Corpuscular Hgb Conc. 32.9 g/dL (32.0-36.0); Mean Corpuscular Volume 86.8 fL (80.0-100.0); Monocytes # (auto) 1.8 uL; Monocytes % (auto) 11.5 % (0.0-12.0); Neutrophils # (auto) 11.2 uL; Neutrophils % (auto) 69.8 % (37.0-80.0); Platelet Count (auto) 305 10^3/uL (140-450); Red Blood Cells 3.49 10^6/uL (4.0-5.20); Red Cell Distribution Width 14.2 % (11.8-14.3)
[2018-03-01 04:11] LABS: Albumin 1.9 g/dL (3.4-5.0); BUN/Creatinine Ratio 31.3; Bilirubin, Total 1.1 mg/dL (0.2-1.0); Calcium 8.5 mg/dL (8.5-10.1); Phosphorus 3.1 mg/dL (2.5-4.90); Total Protein 6.7 g/dL (6.4-8.2)
[2018-03-01] MEDS: VANCOMYCIN 1GM/250ML 250 ML IV SCH (05:00)
[2018-03-01] MEDS: METOCLOPRAMIDE HCL 5MG/ml INJ 2ml VIAL IV SCH (06:00)
[2018-03-01] MEDS: ACCU-CHEK COMFORT CURVE STRIP VI SCH ×4 (06:00→19:54)
[2018-03-01] MEDS: InsuLIN REG 1unit/0.01ml Soln (100units/ml) SC SCH ×4 (06:00→19:54)
[2018-03-01] MEDS: MIDAZOLAM DRIP 50 mg/50mL 50 ML IV SCH ×3 (06:11→22:46)
[2018-03-01] MEDS: AMIODARONE HCL 900 MG in DEXTROSE 500 ML IV SCH ×2 (06:16→20:03)
[2018-03-01] MEDS: PANTOPRAZOLE 40 MG/10 ML VIAL IV SCH (09:32)
[2018-03-01] MEDS: DIGOXIN (250MCG/ML) 2 ML AMPULE IV SCH (09:33)
[2018-03-01] MEDS: SODIUM CHLOR 0.9% PF (SALINE LOCK) 10ML VIAL/SYR IV SCH ×2 (09:33→22:00)
[2018-03-01] MEDS: ENOXAPARIN SOD 100 MG/1 ML SYRINGE SC SCH ×2 (09:33→22:00)
[2018-03-01] MEDS: fentaNYL Drip 2500mCg/250mlNS 250 ML IV SCH ×2 (09:37→22:45)
[2018-03-01] MEDS ORDERED: FLUCONAZOLE 200MG/100ML 100 ML IV SCH (10:00)
[2018-03-01] MEDS ORDERED: LIDOCAINE 2% (LOCAL ANESTH.) PF 5ml SDV ONE ×2 (10:06→13:24)
[2018-03-01 10:29] LABS: INR 1.01 (0.9-1.15)
[2018-03-01] MEDS ORDERED: MICAFUNGIN SODIUM 100 MG in SODIUM CHL 0.9% 100 ML IV ONE (15:45)
[2018-03-01] MEDS ORDERED: MEROPENEM 1gm/20ml IVPUSH 20 ML IV ONE (15:45)
[2018-03-01] MEDS: NOREPINEPHRINE 16 MG/500ML KIT 500 ML IV SCH (16:07)
[2018-03-01] MEDS ORDERED: TPN PER PHARMACY IV NR ×9 (20:00)
[2018-03-01] MEDS: MEROPENEM 1gm/20ml IVPUSH 20 ML IV SCH (22:00)
[2018-03-01] MEDS: LINEZOLID 600MG/300ML 300 ML IV SCH (22:00)
[2018-03-02] VITALS (100 sets, daily range): BP systolic 87–129; BP diastolic 46–76
[2018-03-02 03:52] LABS: Basophils # (auto) 0.1 uL; Basophils % (auto) 0.6 % (0.0-2.0); Eosinophils # (auto) 0.4 uL; Eosinophils % (auto) 3.4 % (0.0-7.0); Hematocrit 28.8 % (36.0-46.0); Hemoglobin 9.6 g/dL (12.2-16.2); Lymphocytes % (auto) 27.2 % (10.0-50.0); Mean Corpuscular Hemoglobin 28.9 pg (28.0-32.0); Mean Corpuscular Hgb Conc. 33.2 g/dL (32.0-36.0); Mean Corpuscular Volume 87.1 fL (80.0-100.0); Monocytes # (auto) 1.6 uL; Monocytes % (auto) 14.8 % (0.0-12.0); Neutrophils # (auto) 5.9 uL; Platelet Count (auto) 318 10^3/uL (140-450); Red Blood Cells 3.31 10^6/uL (4.0-5.20); Red Cell Distribution Width 14.2 % (11.8-14.3); White Blood Cell 10.9 10^3/uL (4.4-10.8)
[2018-03-02 03:53] LABS: Albumin 1.8 g/dL (3.4-5.0); Calcium 8.8 mg/dL (8.5-10.1); Potassium 3.9 mmol/L (3.5-5.1)
[2018-03-02 03:56] LABS: BUN/Creatinine Ratio 30.3
[2018-03-02 03:57] LABS: Magnesium 1.9 mg/dL (1.6-2.6); Phosphorus 3.4 mg/dL (2.5-4.90)
[2018-03-02 03:59] LABS: Total Protein 6.6 g/dL (6.4-8.2)
[2018-03-02] MEDS: MIDAZOLAM DRIP 50 mg/50mL 50 ML IV SCH ×5 (04:51→21:39)
[2018-03-02] MEDS: ACCU-CHEK COMFORT CURVE STRIP VI SCH ×4 (06:00→17:33)
[2018-03-02] MEDS: InsuLIN REG 1unit/0.01ml Soln (100units/ml) SC SCH ×4 (06:00→17:34)
[2018-03-02] MEDS: MEROPENEM 1gm/20ml IVPUSH 20 ML IV SCH ×3 (06:00→22:00)
[2018-03-02] MEDS: fentaNYL Drip 2500mCg/250mlNS 250 ML IV SCH (08:47)
[2018-03-02] MEDS: MICAFUNGIN SODIUM 100 MG in SODIUM CHL 0.9% 100 ML IV SCH (10:00)
[2018-03-02] MEDS: LINEZOLID 600MG/300ML 300 ML IV SCH ×2 (10:00→22:00)
[2018-03-02] MEDS: ENOXAPARIN SOD 100 MG/1 ML SYRINGE SC SCH ×2 (10:00→22:00)
[2018-03-02] MEDS: SODIUM CHLOR 0.9% PF (SALINE LOCK) 10ML VIAL/SYR IV SCH ×2 (10:00→22:00)
[2018-03-02] MEDS: PANTOPRAZOLE 40 MG/10 ML VIAL IV SCH (10:00)
[2018-03-02] MEDS: DIGOXIN (250MCG/ML) 2 ML AMPULE IV SCH (10:31)
[2018-03-02] MEDS: NOREPINEPHRINE 16 MG/500ML KIT 500 ML IV SCH (16:07)
[2018-03-02] MEDS ORDERED: TPN PER PHARMACY IV NR ×9 (20:00)
[2018-03-03] VITALS (104 sets, daily range): BP systolic 81–173; BP diastolic 42–102
[2018-03-03 03:57] LABS: Basophils # (auto) 0.1 uL; Basophils % (auto) 0.9 % (0.0-2.0); Eosinophils # (auto) 0.4 uL; Eosinophils % (auto) 4.8 % (0.0-7.0); Hematocrit 28.7 % (36.0-46.0); Hemoglobin 9.5 g/dL (12.2-16.2); Lymphocytes % (auto) 36.5 % (10.0-50.0); Mean Corpuscular Hemoglobin 28.8 pg (28.0-32.0); Mean Corpuscular Volume 87.4 fL (80.0-100.0); Monocytes # (auto) 1.1 uL; Monocytes % (auto) 13.5 % (0.0-12.0); Neutrophils # (auto) 3.6 uL; Neutrophils % (auto) 44.3 % (37.0-80.0); Nucleated Red Blood Cells % 0.1 %; Platelet Count (auto) 321 10^3/uL (140-450); Red Blood Cells 3.29 10^6/uL (4.0-5.20); Red Cell Distribution Width 14.5 % (11.8-14.3); White Blood Cell 8.1 10^3/uL (4.4-10.8)
[2018-03-03 04:06] LABS: Albumin 1.9 g/dL (3.4-5.0); Calcium 8.9 mg/dL (8.5-10.1); Magnesium 2.1 mg/dL (1.6-2.6); Potassium 3.9 mmol/L (3.5-5.1)
[2018-03-03 04:12] LABS: BUN/Creatinine Ratio 30.3; Bilirubin, Total 0.8 mg/dL (0.2-1.0); Total Protein 6.8 g/dL (6.4-8.2)
[2018-03-03 04:27] LABS: Pre Albumin 11.1 mg/dL (20.0-40.0)
[2018-03-03] MEDS: InsuLIN REG 1unit/0.01ml Soln (100units/ml) SC SCH ×4 (06:22→18:00)
[2018-03-03] MEDS: MEROPENEM 1gm/20ml IVPUSH 20 ML IV SCH ×3 (06:22→21:35)
[2018-03-03] MEDS: ACCU-CHEK COMFORT CURVE STRIP VI SCH ×4 (06:22→18:00)
[2018-03-03] MEDS: ENOXAPARIN SOD 100 MG/1 ML SYRINGE SC SCH ×2 (10:44→21:35)
[2018-03-03] MEDS: PANTOPRAZOLE 40 MG/10 ML VIAL IV SCH (10:45)
[2018-03-03] MEDS: DIGOXIN (250MCG/ML) 2 ML AMPULE IV SCH (10:45)
[2018-03-03] MEDS: MICAFUNGIN SODIUM 100 MG in SODIUM CHL 0.9% 100 ML IV SCH (10:46)
[2018-03-03] MEDS: fentaNYL Drip 2500mCg/250mlNS 250 ML IV SCH ×2 (11:11→16:59)
[2018-03-03] MEDS: LINEZOLID 600MG/300ML 300 ML IV SCH ×2 (12:27→21:35)
[2018-03-03] MEDS: SODIUM CHLOR 0.9% PF (SALINE LOCK) 10ML VIAL/SYR IV SCH ×2 (12:28→21:35)
[2018-03-03] MEDS: AMIODARONE HCL 900 MG in DEXTROSE 500 ML IV SCH ×3 (13:00→15:45)
[2018-03-03] MEDS: NOREPINEPHRINE 16 MG/500ML KIT 500 ML IV SCH ×2 (13:20→16:07)
[2018-03-03] MEDS ORDERED: FUROSEMIDE 20 MG/2 ML VIAL IV ONE (14:15)
[2018-03-03] MEDS: POTASSIUM CHL 10% (20 MEQ/15ML) 15ml ORAL SOLN GT ONE ×2 (14:15→16:21)
[2018-03-03] MEDS ORDERED: Fibersource Hn 1 Liter GT SCH (15:37)
[2018-03-03] MEDS ORDERED: TPN PER PHARMACY IV NR ×9 (20:00)
[2018-03-03] MEDS: LORazepam 2MG/ML-1ML VIAL IV PRN (22:33)
[2018-03-04] VITALS (109 sets, daily range): BP systolic 82–173; BP diastolic 39–111
[2018-03-04] MEDS: LORazepam 2MG/ML-1ML VIAL IV PRN ×4 (03:57→20:08)
[2018-03-04 04:25] LABS: Basophils # (auto) 0.1 uL; Basophils % (auto) 0.4 % (0.0-2.0); Eosinophils # (auto) 0.1 uL; Eosinophils % (auto) 0.7 % (0.0-7.0); Hematocrit 31.6 % (36.0-46.0); Hemoglobin 10.4 g/dL (12.2-16.2); Lymphocytes # (auto) 3.9 uL; Lymphocytes % (auto) 29.7 % (10.0-50.0); Mean Corpuscular Hemoglobin 28.4 pg (28.0-32.0); Mean Corpuscular Volume 85.9 fL (80.0-100.0); Monocytes # (auto) 1.1 uL; Monocytes % (auto) 8.7 % (0.0-12.0); Neutrophils # (auto) 7.9 uL; Neutrophils % (auto) 60.5 % (37.0-80.0); Nucleated Red Blood Cells % 0.1 %; Platelet Count (auto) 395 10^3/uL (140-450); Red Blood Cells 3.68 10^6/uL (4.0-5.20); Red Cell Distribution Width 14.1 % (11.8-14.3); White Blood Cell 13.1 10^3/uL (4.4-10.8)
[2018-03-04 04:41] LABS: Albumin 2.3 g/dL (3.4-5.0); BUN/Creatinine Ratio 25.6; Bilirubin, Total 0.9 mg/dL (0.2-1.0); Calcium 9.4 mg/dL (8.5-10.1); Magnesium 2.1 mg/dL (1.6-2.6); Phosphorus 3.9 mg/dL (2.5-4.90); Potassium 4.2 mmol/L (3.5-5.1); Total Protein 8.2 g/dL (6.4-8.2)
[2018-03-04] MEDS: InsuLIN REG 1unit/0.01ml Soln (100units/ml) SC SCH ×4 (06:00→17:55)
[2018-03-04] MEDS: ACCU-CHEK COMFORT CURVE STRIP VI SCH ×4 (06:19→17:55)
[2018-03-04] MEDS: MEROPENEM 1gm/20ml IVPUSH 20 ML IV SCH ×3 (06:21→21:39)
[2018-03-04] MEDS: MICAFUNGIN SODIUM 100 MG in SODIUM CHL 0.9% 100 ML IV SCH (09:47)
[2018-03-04] MEDS: PANTOPRAZOLE 40 MG/10 ML VIAL IV SCH (09:47)
[2018-03-04] MEDS: DIGOXIN (250MCG/ML) 2 ML AMPULE IV SCH (09:47)
[2018-03-04] MEDS: SODIUM CHLOR 0.9% PF (SALINE LOCK) 10ML VIAL/SYR IV SCH ×2 (09:48→21:40)
[2018-03-04] MEDS: ENOXAPARIN SOD 100 MG/1 ML SYRINGE SC SCH ×2 (09:48→21:39)
[2018-03-04] MEDS: LINEZOLID 600MG/300ML 300 ML IV SCH ×2 (10:56→21:40)
[2018-03-04] MEDS: MIDAZOLAM DRIP 50 mg/50mL 50 ML IV SCH (11:01)
[2018-03-04] MEDS ORDERED: fentaNYL Drip 2500mCg/250mlNS 250 ML IV SCH (11:11)
[2018-03-04] MEDS ORDERED: TPN PER PHARMACY 0 ML IV SCH (11:45)
[2018-03-04] MEDS: fentaNYL Drip 2500mCg/250mlNS 250 ML IV SCH (16:45)
[2018-03-04] MEDS: NOREPINEPHRINE 16 MG/500ML KIT 500 ML IV SCH (18:31)
[2018-03-04] MEDS: AMIODARONE HCL 900 MG in DEXTROSE 500 ML IV SCH (18:31)
[2018-03-04] MEDS ORDERED: TPN PER PHARMACY IV NR ×9 (20:00)
[2018-03-04] MEDS ORDERED: PROPOFOL 100 ML IV SCH (21:16)
[2018-03-05] VITALS (100 sets, daily range): BP systolic 82–145; BP diastolic 41–96
[2018-03-05] MEDS: ACCU-CHEK COMFORT CURVE STRIP VI SCH ×5 (00:30→23:47)
[2018-03-05] MEDS: InsuLIN REG 1unit/0.01ml Soln (100units/ml) SC SCH ×5 (00:34→23:47)
[2018-03-05 05:09] LABS: Basophils # (auto) 0.1 uL; Eosinophils # (auto) 0.4 uL; Eosinophils % (auto) 5.6 % (0.0-7.0); Hematocrit 30.5 % (36.0-46.0); Hemoglobin 10.1 g/dL (12.2-16.2); Lymphocytes # (auto) 2.8 uL; Lymphocytes % (auto) 40.4 % (10.0-50.0); Mean Corpuscular Hemoglobin 28.7 pg (28.0-32.0); Mean Corpuscular Hgb Conc. 33.1 g/dL (32.0-36.0); Mean Corpuscular Volume 86.8 fL (80.0-100.0); Monocytes # (auto) 0.8 uL; Neutrophils # (auto) 2.9 uL; Nucleated Red Blood Cells % 0.1 %; Platelet Count (auto) 353 10^3/uL (140-450); Red Blood Cells 3.51 10^6/uL (4.0-5.20); Red Cell Distribution Width 14.6 % (11.8-14.3); White Blood Cell 7.1 10^3/uL (4.4-10.8)
[2018-03-05 05:43] LABS: Albumin 2.4 g/dL (3.4-5.0); Bilirubin, Total 0.8 mg/dL (0.2-1.0); Calcium 9.7 mg/dL (8.5-10.1); Magnesium 2.1 mg/dL (1.6-2.6); Potassium 3.4 mmol/L (3.5-5.1); Total Protein 7.6 g/dL (6.4-8.2)
[2018-03-05] MEDS: MEROPENEM 1gm/20ml IVPUSH 20 ML IV SCH ×3 (06:00→22:07)
[2018-03-05] MEDS: PANTOPRAZOLE 40 MG/10 ML VIAL IV SCH (09:37)
[2018-03-05] MEDS: MICAFUNGIN SODIUM 100 MG in SODIUM CHL 0.9% 100 ML IV SCH (09:37)
[2018-03-05] MEDS: DIGOXIN (250MCG/ML) 2 ML AMPULE IV SCH (09:37)
[2018-03-05] MEDS: ENOXAPARIN SOD 100 MG/1 ML SYRINGE SC SCH ×2 (09:38→22:07)
[2018-03-05] MEDS: SODIUM CHLOR 0.9% PF (SALINE LOCK) 10ML VIAL/SYR IV SCH ×2 (09:38→22:08)
[2018-03-05] MEDS ORDERED: POTASSIUM CHL 20MEQ/100ML 100 ML IV ONE (10:15)
[2018-03-05] MEDS: LINEZOLID 600MG/300ML 300 ML IV SCH ×2 (11:13→22:07)
[2018-03-05] MEDS: MORPHINE SULFATE 8mg/ml INJ SDV IV PRN ×2 (12:47→17:59)
[2018-03-05] MEDS ORDERED: ONDANSETRON HCL 4 MG/2 ML VIAL ONE (13:33)
[2018-03-05] MEDS: fentaNYL Drip 2500mCg/250mlNS 250 ML IV SCH (17:57)
[2018-03-05] MEDS: AMIODARONE HCL 900 MG in DEXTROSE 500 ML IV SCH (17:57)
[2018-03-05] MEDS: NOREPINEPHRINE 16 MG/500ML KIT 500 ML IV SCH (17:57)
[2018-03-05] MEDS ORDERED: TPN PER PHARMACY IV NR ×9 (20:00)
[2018-03-05] MEDS: KETOROLAC TROMETH 30 MG/ML 1ML VIAL IV PRN (23:36)
[2018-03-06] VITALS (82 sets, daily range): BP systolic 99–158; BP diastolic 49–119
[2018-03-06 03:47] LABS: Basophils # (auto) 0 uL; Basophils % (auto) 0.7 % (0.0-2.0); Eosinophils # (auto) 0.2 uL; Eosinophils % (auto) 3.5 % (0.0-7.0); Hematocrit 28.7 % (36.0-46.0); Hemoglobin 9.6 g/dL (12.2-16.2); Lymphocytes # (auto) 2.6 uL; Lymphocytes % (auto) 37.8 % (10.0-50.0); Mean Corpuscular Hemoglobin 28.8 pg (28.0-32.0); Mean Corpuscular Hgb Conc. 33.4 g/dL (32.0-36.0); Mean Corpuscular Volume 86.3 fL (80.0-100.0); Monocytes # (auto) 0.9 uL; Monocytes % (auto) 12.4 % (0.0-12.0); Neutrophils # (auto) 3.2 uL; Neutrophils % (auto) 45.6 % (37.0-80.0); Platelet Count (auto) 308 10^3/uL (140-450); Red Blood Cells 3.33 10^6/uL (4.0-5.20); Red Cell Distribution Width 14.5 % (11.8-14.3); White Blood Cell 6.9 10^3/uL (4.4-10.8)
[2018-03-06 04:05] LABS: Albumin 2.4 g/dL (3.4-5.0); Bilirubin, Total 0.7 mg/dL (0.2-1.0); Calcium 8.9 mg/dL (8.5-10.1); Magnesium 2.1 mg/dL (1.6-2.6); Phosphorus 3.1 mg/dL (2.5-4.90); Potassium 3.7 mmol/L (3.5-5.1); Total Protein 7.3 g/dL (6.4-8.2)
[2018-03-06] MEDS: InsuLIN REG 1unit/0.01ml Soln (100units/ml) SC SCH ×2 (06:00→12:24)
[2018-03-06] MEDS: ACCU-CHEK COMFORT CURVE STRIP VI SCH ×2 (06:00→12:25)
[2018-03-06] MEDS: MEROPENEM 1gm/20ml IVPUSH 20 ML IV SCH ×3 (06:00→21:35)
[2018-03-06] MEDS: KETOROLAC TROMETH 30 MG/ML 1ML VIAL IV PRN ×2 (06:15→12:25)
[2018-03-06] MEDS: PANTOPRAZOLE 40 MG/10 ML VIAL IV SCH (10:14)
[2018-03-06] MEDS: MICAFUNGIN SODIUM 100 MG in SODIUM CHL 0.9% 100 ML IV SCH (10:14)
[2018-03-06] MEDS: DIGOXIN (250MCG/ML) 2 ML AMPULE IV SCH (10:14)
[2018-03-06] MEDS: LINEZOLID 600MG/300ML 300 ML IV SCH ×2 (10:15→21:35)
[2018-03-06] MEDS: SODIUM CHLOR 0.9% PF (SALINE LOCK) 10ML VIAL/SYR IV SCH ×2 (10:15→21:35)
[2018-03-06] MEDS: ENOXAPARIN SOD 100 MG/1 ML SYRINGE SC SCH ×2 (10:16→21:36)
[2018-03-06] MEDS ORDERED: LORazepam 2MG/ML-1ML VIAL IV PRN (12:15)
[2018-03-06] MEDS ORDERED: FUROSEMIDE 20 MG/2 ML VIAL IV ONE (12:15)
[2018-03-06] MEDS ORDERED: POTASSIUM CHL 10% (20 MEQ/15ML) 15ml ORAL SOLN PO ONE (12:15)
[2018-03-06] MEDS ORDERED: AMIODARONE HCL 200 MG TAB PO ONE (14:15)
[2018-03-06] MEDS ORDERED: TPN PER PHARMACY IV NR ×19 (20:00)
[2018-03-06] MEDS: MORPHINE SULFATE 8mg/ml INJ SDV IV PRN (20:09)
[2018-03-06] MEDS: ACETAMINOPHEN/CODEINE#3 (300/30mg) TAB PO PRN (21:36)
[2018-03-06] MEDS: AMIODARONE HCL 200 MG TAB PO SCH (21:36)
[2018-03-07] VITALS (59 sets, daily range): BP systolic 105–175; BP diastolic 50–102
[2018-03-07 03:45] LABS: Basophils # (auto) 0.1 uL; Basophils % (auto) 0.8 % (0.0-2.0); Eosinophils # (auto) 0.3 uL; Eosinophils % (auto) 3.4 % (0.0-7.0); Hematocrit 30.3 % (36.0-46.0); Hemoglobin 9.9 g/dL (12.2-16.2); Lymphocytes # (auto) 3.1 uL; Lymphocytes % (auto) 39.4 % (10.0-50.0); Mean Corpuscular Hemoglobin 28.1 pg (28.0-32.0); Mean Corpuscular Hgb Conc. 32.5 g/dL (32.0-36.0); Mean Corpuscular Volume 86.3 fL (80.0-100.0); Monocytes # (auto) 0.8 uL; Monocytes % (auto) 10.1 % (0.0-12.0); Neutrophils # (auto) 3.7 uL; Neutrophils % (auto) 46.3 % (37.0-80.0); Platelet Count (auto) 312 10^3/uL (140-450); Red Blood Cells 3.51 10^6/uL (4.0-5.20); Red Cell Distribution Width 14.7 % (11.8-14.3)
[2018-03-07 04:04] LABS: BUN/Creatinine Ratio 28.9; Potassium 3.7 mmol/L (3.5-5.1)
[2018-03-07] MEDS: MEROPENEM 1gm/20ml IVPUSH 20 ML IV SCH ×3 (06:00→22:37)
[2018-03-07] MEDS: MORPHINE SULFATE 8mg/ml INJ SDV IV PRN (06:56)
[2018-03-07] MEDS: ACETAMINOPHEN/CODEINE#3 (300/30mg) TAB PO PRN ×2 (08:01→15:54)
[2018-03-07] MEDS: DIGOXIN 0.125 MG TAB PO SCH (09:52)
[2018-03-07] MEDS: AMIODARONE HCL 200 MG TAB PO SCH ×2 (09:52→22:38)
[2018-03-07] MEDS: ENOXAPARIN SOD 100 MG/1 ML SYRINGE SC SCH (09:52)
[2018-03-07] MEDS: PANTOPRAZOLE 40 MG/10 ML VIAL IV SCH (09:53)
[2018-03-07] MEDS: MICAFUNGIN SODIUM 100 MG in SODIUM CHL 0.9% 100 ML IV SCH (09:54)
[2018-03-07] MEDS: SODIUM CHLOR 0.9% PF (SALINE LOCK) 10ML VIAL/SYR IV SCH ×2 (09:54→22:38)
[2018-03-07] MEDS: LINEZOLID 600MG/300ML 300 ML IV SCH ×2 (11:51→22:38)
[2018-03-07] MEDS ORDERED: VASELINE LIP THERAPY 10gm TOP PRN (12:30)
[2018-03-07] MEDS: HYDROcodone-ACET 5/325MG TAB PO PRN ×2 (17:17→22:37)
[2018-03-07] MEDS: APIXABAN 5 MG TAB PO SCH (22:38)
[2018-03-08] VITALS (32 sets, daily range): BP systolic 99–153; BP diastolic 62–97
[2018-03-08] MEDS: ONDANSETRON HCL 4 MG/2 ML VIAL IV PRN ×2 (01:20→19:38)
[2018-03-08] MEDS: MEROPENEM 1gm/20ml IVPUSH 20 ML IV SCH ×3 (05:49→22:22)
[2018-03-08] MEDS ORDERED: FLUCONAZOLE 100 MG TAB PO SCH (10:00)
[2018-03-08] MEDS ORDERED: MICAFUNGIN SODIUM 100 MG in SODIUM CHL 0.9% 100 ML IV ONE (10:30)
[2018-03-08] MEDS: APIXABAN 5 MG TAB PO SCH ×3 (10:54→22:22)
[2018-03-08] MEDS: SODIUM CHLOR 0.9% PF (SALINE LOCK) 10ML VIAL/SYR IV SCH ×2 (10:55→22:23)
[2018-03-08] MEDS: PANTOPRAZOLE 40 MG TAB PO SCH (10:55)
[2018-03-08] MEDS: AMIODARONE HCL 200 MG TAB PO SCH ×2 (10:55→22:23)
[2018-03-08] MEDS: DIGOXIN 0.125 MG TAB PO SCH (10:55)
[2018-03-08] MEDS: LINEZOLID 600MG/300ML 300 ML IV SCH ×2 (10:56→22:22)
[2018-03-08 10:57] LABS: Basophils # (auto) 0.1 uL; Eosinophils # (auto) 0.2 uL; Eosinophils % (auto) 1.9 % (0.0-7.0); Hematocrit 33.5 % (36.0-46.0); Lymphocytes # (auto) 2.1 uL; Lymphocytes % (auto) 26.1 % (10.0-50.0); Mean Corpuscular Hemoglobin 28.5 pg (28.0-32.0); Mean Corpuscular Hgb Conc. 32.8 g/dL (32.0-36.0); Mean Corpuscular Volume 86.6 fL (80.0-100.0); Monocytes # (auto) 0.8 uL; Monocytes % (auto) 9.3 % (0.0-12.0); Neutrophils # (auto) 5.1 uL; Neutrophils % (auto) 61.7 % (37.0-80.0); Nucleated Red Blood Cells % 0.2 %; Platelet Count (auto) 348 10^3/uL (140-450); Red Blood Cells 3.86 10^6/uL (4.0-5.20); Red Cell Distribution Width 15.2 % (11.8-14.3); White Blood Cell 8.2 10^3/uL (4.4-10.8)
[2018-03-08 11:13] LABS: Albumin 2.9 g/dL (3.4-5.0); BUN/Creatinine Ratio 21.7; Potassium 3.7 mmol/L (3.5-5.1)
[2018-03-08 11:16] LABS: Bilirubin, Total 1.1 mg/dL (0.2-1.0); Total Protein 7.6 g/dL (6.4-8.2)
[2018-03-08] MEDS: HYDROcodone-ACET 5/325MG TAB PO PRN ×2 (12:42→19:09)
[2018-03-08] MEDS ORDERED: TEMAZEPAM 15 MG CAP PO PRN (21:00)
[2018-03-08] MEDS: TEMAZEPAM 15 MG CAP PO PRN (22:23)
[2018-03-09] VITALS (53 sets, daily range): BP systolic 116–154; BP diastolic 69–94
[2018-03-09] MEDS: ONDANSETRON HCL 4 MG/2 ML VIAL IV PRN (05:50)
[2018-03-09] MEDS: HYDROcodone-ACET 5/325MG TAB PO PRN (05:50)
[2018-03-09] MEDS: MEROPENEM 1gm/20ml IVPUSH 20 ML IV SCH ×2 (05:51→14:20)
[2018-03-09 07:13] LABS: Basophils # (auto) 0.1 uL; Basophils % (auto) 1.3 % (0.0-2.0); Eosinophils # (auto) 0.3 uL; Eosinophils % (auto) 3.6 % (0.0-7.0); Hematocrit 33.4 % (36.0-46.0); Lymphocytes # (auto) 2.3 uL; Lymphocytes % (auto) 31.8 % (10.0-50.0); Mean Corpuscular Hemoglobin 28.3 pg (28.0-32.0); Mean Corpuscular Hgb Conc. 32.9 g/dL (32.0-36.0); Monocytes # (auto) 0.8 uL; Monocytes % (auto) 10.7 % (0.0-12.0); Neutrophils # (auto) 3.8 uL; Neutrophils % (auto) 52.6 % (37.0-80.0); Nucleated Red Blood Cells % 0.1 %; Platelet Count (auto) 361 10^3/uL (140-450); Red Blood Cells 3.88 10^6/uL (4.0-5.20); Red Cell Distribution Width 15.2 % (11.8-14.3); White Blood Cell 7.3 10^3/uL (4.4-10.8)
[2018-03-09 07:32] LABS: BUN/Creatinine Ratio 20.4; Potassium 3.2 mmol/L (3.5-5.1)
[2018-03-09] MEDS ORDERED: MICAFUNGIN SODIUM 100 MG in SODIUM CHL 0.9% 100 ML IV SCH (09:00)
[2018-03-09] MEDS: PANTOPRAZOLE 40 MG TAB PO SCH (09:40)
[2018-03-09] MEDS: SODIUM CHLOR 0.9% PF (SALINE LOCK) 10ML VIAL/SYR IV SCH ×2 (09:40→23:18)
[2018-03-09] MEDS: DIGOXIN 0.125 MG TAB PO SCH (09:40)
[2018-03-09] MEDS: APIXABAN 5 MG TAB PO SCH ×2 (09:40→21:29)
[2018-03-09] MEDS: LINEZOLID 600MG/300ML 300 ML IV SCH (09:40)
[2018-03-09] MEDS: AMIODARONE HCL 200 MG TAB PO SCH ×2 (09:43→21:30)
[2018-03-09] MEDS ORDERED: ALPRAZolam 0.5 MG TAB ONE (13:18)
[2018-03-09] MEDS: ALPRAZolam 0.5 MG TAB PO SCH ×2 (13:21→20:23)
[2018-03-09] MEDS: metroNIDAZOLE 500 MG TAB PO SCH (21:29)
[2018-03-09] MEDS: TEMAZEPAM 15 MG CAP PO PRN (22:05)
[2018-03-09] MEDS: LINEZOLID 600MG TABLET PO SCH (23:19)
[2018-03-10 05:00] VITALS: BP 151/89
[2018-03-10] MEDS: metroNIDAZOLE 500 MG TAB PO SCH ×2 (06:11→16:01)
[2018-03-10] MEDS: HYDROcodone-ACET 5/325MG TAB PO PRN (06:12)
[2018-03-10 06:36] LABS: Basophils # (auto) 0.1 uL; Basophils % (auto) 1.1 % (0.0-2.0); Eosinophils # (auto) 0.6 uL; Eosinophils % (auto) 8.2 % (0.0-7.0); Hematocrit 35.1 % (36.0-46.0); Hemoglobin 11.8 g/dL (12.2-16.2); Lymphocytes # (auto) 2.6 uL; Lymphocytes % (auto) 35.1 % (10.0-50.0); Mean Corpuscular Hemoglobin 29.2 pg (28.0-32.0); Mean Corpuscular Hgb Conc. 33.7 g/dL (32.0-36.0); Mean Corpuscular Volume 86.5 fL (80.0-100.0); Monocytes # (auto) 0.7 uL; Monocytes % (auto) 9.6 % (0.0-12.0); Neutrophils # (auto) 3.5 uL; Nucleated Red Blood Cells % 0.1 %; Platelet Count (auto) 388 10^3/uL (140-450); Red Blood Cells 4.06 10^6/uL (4.0-5.20); Red Cell Distribution Width 14.9 % (11.8-14.3); White Blood Cell 7.5 10^3/uL (4.4-10.8)
[2018-03-10 06:55] LABS: Potassium 3.3 mmol/L (3.5-5.1)
[2018-03-10 07:00] LABS: Albumin 3.1 g/dL (3.4-5.0)
[2018-03-10 07:03] LABS: Bilirubin, Total 1.3 mg/dL (0.2-1.0); Total Protein 7.8 g/dL (6.4-8.2)
[2018-03-10] MEDS ORDERED: POTASSIUM CHL 20 Meq TABLET PO ONE (08:15)
[2018-03-10 09:00] VITALS: BP 150/81
[2018-03-10] MEDS ORDERED: FLUCONAZOLE 100 MG TAB PO SCH (10:00)
[2018-03-10] MEDS: SODIUM CHLOR 0.9% PF (SALINE LOCK) 10ML VIAL/SYR IV SCH (10:00)
[2018-03-10] MEDS: PANTOPRAZOLE 40 MG TAB PO SCH (10:04)
[2018-03-10] MEDS: APIXABAN 5 MG TAB PO SCH (10:04)
[2018-03-10] MEDS: DIGOXIN 0.125 MG TAB PO SCH (10:04)
[2018-03-10] MEDS: AMIODARONE HCL 200 MG TAB PO SCH (10:04)
[2018-03-10] MEDS ORDERED: METOPROLOL TARTRATE 25 MG TAB PO ONE (10:45)
[2018-03-10] MEDS: LINEZOLID 600MG TABLET PO SCH (10:58)
[2018-03-10] MEDS ORDERED: TRAM50TA2 PO (12:00)
[2018-03-10 12:35] VITALS: BP 147/97
[2018-03-10 13:00] VITALS: BP 155/96
== END 2018-03-10 18:15 | disposition home health service (06) | DRG 853 ==
LOC: ER 01:06 → TELE 01:07 → TELE-WESTW 17:00 → WEST WING 01-28 15:07 → ICU WEST 01-30 16:38 → DOU IN ICU 01-31 15:02 → TELE-CENTR 02-03 22:32 → CENTRAL 02-03 22:44 → ICU WEST 02-14 16:51 → TELE-EAST 03-09 18:24
PROVIDERS: ADMIT Nurse Practitioner; ATTEND Internal Medicine
PROC: 0D1M0Z4 Bypass Descending Colon to Cutaneous, Open Approach (ICD-10-PCS; 2018-01-30)
PROC: 0DTN0ZZ Resection of Sigmoid Colon, Open Approach (ICD-10-PCS; principal; 2018-01-30 13:17)
PROC: 02HV33Z Insertion of Infusion Device into Superior Vena Cava, Percutaneous Approach (ICD-10-PCS; 2018-02-03)
PROC: 0DJD8ZZ Inspection of Lower Intestinal Tract, Via Natural or Artificial Opening Endoscopic (ICD-10-PCS; 2018-02-10)
PROC: 0DBF0ZZ Excision of Right Large Intestine, Open Approach (ICD-10-PCS; 2018-02-14)
PROC: 30233N1 Transfusion of Nonautologous Red Blood Cells into Peripheral Vein, Percutaneous Approach (ICD-10-PCS; 2018-02-14)
PROC: 0WPF00Z Removal of Drainage Device from Abdominal Wall, Open Approach (ICD-10-PCS; 2018-02-18)
PROC: 0WQF0ZZ Repair Abdominal Wall, Open Approach (ICD-10-PCS; 2018-02-18)
PROC: 0W9D00Z Drainage of Pericardial Cavity with Drainage Device, Open Approach (ICD-10-PCS; 2018-02-18)
PROC: 3E1M38Z Irrigation of Peritoneal Cavity using Irrigating Substance, Percutaneous Approach (ICD-10-PCS; 2018-02-18)
PROC: 5A1955Z Respiratory Ventilation, Greater than 96 Consecutive Hours (ICD-10-PCS; 2018-02-27)
PROC: 0BH17EZ Insertion of Endotracheal Airway into Trachea, Via Natural or Artificial Opening (ICD-10-PCS; 2018-02-27)
DX: A41.9 Sepsis, unspecified organism (principal); E43 Unspecified severe protein-calorie malnutrition; J96.00 Acute respiratory failure, unspecified whether with hypoxia or hypercapnia; K55.9 Vascular disorder of intestine, unspecified; R18.8 Other ascites; K66.8 Other specified disorders of peritoneum; I82.402 Acute embolism and thrombosis of unspecified deep veins of left lower extremity; K57.32 Diverticulitis of large intestine without perforation or abscess without bleeding; K57.20 Diverticulitis of large intestine with perforation and abscess without bleeding; I47.1 Supraventricular tachycardia; T81.30XA Disruption of wound, unspecified, initial encounter; K94.09 Other complications of colostomy; E66.01 Morbid (severe) obesity due to excess calories; Y92.238 Other place in hospital as the place of occurrence of the external cause; Y83.8 Other surgical procedures as the cause of abnormal reaction of the patient, or of later complication, without mention of misadventure at the time of the procedure; I48.91 Unspecified atrial fibrillation; D64.9 Anemia, unspecified; F17.210 Nicotine dependence, cigarettes, uncomplicated; I10 Essential (primary) hypertension; K59.00 Constipation, unspecified; K66.0 Peritoneal adhesions (postprocedural) (postinfection); N83.202 Unspecified ovarian cyst, left side; Z90.49 Acquired absence of other specified parts of digestive tract; Z68.27 Body mass index [BMI] 27.0-27.9, adult
CPT/HCPCS: 10022; 36415; 36600; 71045; 74176; 74177; 76705; 77012; 80048; 80053; 80162; 80202; 81001; 82040; 82378; 82805; 82962; 83036; 83605; 83690; 83735; 84100; 84478; 84484; 85007; 85025; 85027; 85610; 85730; 86850; 86900; 86901; 86920; 87040; 87070; 87077; 87081; 87086; 87186; 87205; 93005; 93930; 93970; 93971; 94002; 94003; 94761; 96361; 96374; 96375; 96379; 97110; 97116; 97163; 97530; C1729; C9113; J0131; J0153; J0461; J0690; J1100; J1450; J1815; J1885; J2248; J2250; J2270; J2405; J2543; J2704; J3480; J3490; J7060; J7131; P9047

== ENCOUNTER 2020-06-26 13:07 | Emergency (ER) | payer BC, OTHER ==
[~2020-06-26] VITALS: Ht 160 cm; Wt 59.0 kg
[~2020-06-26 13:07] MED LIST: ATEN-60 PO; BENA20TA14 PO; TRAM50TA2 PO
[2020-06-26] MEDS ORDERED: SODIUM CHLORIDE 0.9% 1,000 ML IV ONE ×2 (13:16)
[2020-06-26] MEDS ORDERED: ONDANSETRON HCL 4 MG/2 ML VIAL IV ONE (13:30)
[2020-06-26 14:37] LABS: Basophils # (auto) 0.1 10 ^3/uL (0-0.2); Basophils % (auto) 0.6 % (0.0-2.0); Eosinophils # (auto) 0 10 ^3/uL (0-0.8); Eosinophils % (auto) 0.2 % (0.0-7.0); Hemoglobin 12.2 g/dL (12.2-16.2); Mean Corpuscular Hemoglobin 25.9 pg (28.0-32.0); Mean Corpuscular Hgb Conc. 32.6 g/dL (32.0-36.0); Mean Corpuscular Volume 79.4 fL (80.0-100.0)
[2020-06-26 14:40] LABS: Hematocrit 37.4 % (36.0-46.0); Lymphocytes # (auto) 3.5 10 ^3/uL (0.4-5.4); Lymphocytes % (auto) 20.6 % (10.0-50.0); Monocytes # (auto) 0.8 10 ^3/uL (0-1.3); Monocytes % (auto) 4.6 % (0.0-12.0); Neutrophils # (auto) 12.6 10 ^3/uL (1.6-8.6); Nucleated Red Blood Cells % 0.1 %; Red Blood Cells 4.71 10^6/uL (4.0-5.20)
[2020-06-26 14:48] LABS: Red Cell Distribution Width 21.8 % (11.8-14.3)
[2020-06-26 14:50] LABS: Platelet Count (auto) 983 10^3/uL (140-450)
[2020-06-26 14:58] LABS: Chloride 79 mmol/L (98-107); Potassium 4.6 mmol/L (3.5-5.1); Sodium 120 mmol/L (136-145)
[2020-06-26 15:05] LABS: Alanine Aminotransferase 29 U/L (13-56); Albumin 3.9 g/dL (3.4-5.0); Anion Gap 21 (5-15); Aspartate Aminotransferase 28 U/L (15-37); BUN/Creatinine Ratio 13.1; Calcium 9.4 mg/dL (8.5-10.1); Carbon Dioxide 20 mmol/L (21-32); GFR African American 8 mL/min; GFR Non-African American 7 mL/min; Glucose 114 mg/dL (74-106)
[2020-06-26 15:19] LABS: Alkaline Phosphatase 395 U/L (45-117); Bilirubin, Total 1.1 mg/dL (0.2-1.0); Total Protein 11.5 g/dL (6.4-8.2)
[2020-06-26 15:28] LABS: Blood Urea Nitrogen 89 mg/dL (7-18)
[2020-06-26] MEDS ORDERED: AZITHROMYCIN 500MG/ 250ML 250 ML IV ONE (17:00)
[2020-06-26] MEDS ORDERED: cefTRIAXone 1GM/50ML D5W 50 ML IV ONE (17:00)
[2020-06-26 22:49] LABS: BUN/Creatinine Ratio 14.8; Calcium 8.3 mg/dL (8.5-10.1); Potassium 4.1 mmol/L (3.5-5.1)
[2020-06-26] MEDS ORDERED: SODIUM CHLORIDE 0.9% 500 ML IV ONE (23:00)
[2020-06-26] MEDS ORDERED: SODIUM CHL 3% 500 ML IV ONE (23:15)
[2020-06-27] MEDS ORDERED: CLINDAMYCIN 600MG IV 50 ML IV ONE (01:30)
[2020-06-27] MEDS ORDERED: SODIUM CHLORIDE 0.9% 1,000 ML IV ONE (01:30)
[2020-06-27] MEDS ORDERED: ACETAMINOPHEN 325 MG TAB PO ONE (01:30)
[2020-06-27 02:30] VITALS: BP 97/67
== END 2020-06-27 02:45 | disposition short-term general hospital (02) ==
LOC: ER 13:07 → EDBD 13:07 → ER 06-27 02:45
DX: E87.1 Hypo-osmolality and hyponatremia (principal); E86.0 Dehydration; F41.9 Anxiety disorder, unspecified; D72.829 Elevated white blood cell count, unspecified; L22 Diaper dermatitis; J18.9 Pneumonia, unspecified organism; F17.210 Nicotine dependence, cigarettes, uncomplicated; J44.9 Chronic obstructive pulmonary disease, unspecified; Z87.442 Personal history of urinary calculi
CPT/HCPCS: 36415; 71250; 74176; 80048; 80053; 83605; 84484; 85025; 87040; 96361; 96365; 96366; 96367; 96375; 99291; J0456; J0696; J2405; J3490; J7030

== ENCOUNTER 2020-07-02 09:09 | Emergency (ER) | payer BC ==
[~2020-07-02] VITALS: Ht 160 cm; Wt 49.9 kg
[2020-07-02] MEDS ORDERED: SODIUM CHLORIDE 0.9% 1,000 ML IV ONE (09:47)
[2020-07-02 10:36] LABS: Basophils # (auto) 0.1 10 ^3/uL (0-0.2); Basophils % (auto) 0.9 % (0.0-2.0); Eosinophils # (auto) 0.1 10 ^3/uL (0-0.8); Eosinophils % (auto) 0.6 % (0.0-7.0); Hematocrit 30.5 % (36.0-46.0); Hemoglobin 10.4 g/dL (12.2-16.2); Lymphocytes # (auto) 3.2 10 ^3/uL (0.4-5.4); Lymphocytes % (auto) 24.5 % (10.0-50.0); Mean Corpuscular Hemoglobin 27.3 pg (28.0-32.0); Mean Corpuscular Hgb Conc. 34.1 g/dL (32.0-36.0); Monocytes # (auto) 0.9 10 ^3/uL (0-1.3); Monocytes % (auto) 6.8 % (0.0-12.0); Neutrophils # (auto) 8.8 10 ^3/uL (1.6-8.6); Neutrophils % (auto) 67.2 % (37.0-80.0); Nucleated Red Blood Cells % 0.1 %; Red Blood Cells 3.81 10^6/uL (4.0-5.20); White Blood Cell 13.1 10^3/uL (4.4-10.8)
[2020-07-02 10:50] LABS: Albumin 3.6 g/dL (3.4-5.0); Potassium 4.4 mmol/L (3.5-5.1)
[2020-07-02 10:51] LABS: Magnesium 1.4 mg/dL (1.6-2.6)
[2020-07-02 10:53] LABS: BUN/Creatinine Ratio 11.2; Bilirubin, Total 0.9 mg/dL (0.2-1.0); Total Protein 9.8 g/dL (6.4-8.2)
[2020-07-02 10:58] LABS: Platelet Count (auto) 752 10^3/uL (140-450)
[2020-07-02 11:07] LABS: Lactic Acid w/Reflex 2.1 mmol/L (0.4-2.0)
[2020-07-02 11:29] LABS: INR 1.05 (0.9-1.15); Partial Thromboplastin Time 26.2 sec (23.0-31.2)
[2020-07-02] MEDS ORDERED: ACETAMINOPHEN 325 MG TAB PO ONE (16:45)
[2020-07-02] MEDS ORDERED: cefTRIAXone 1GM/50ML D5W 50 ML IV ONE (18:00)
[2020-07-02] MEDS: MAGNESIUM SULFATE 1GM/100ML 100 ML IV SCH ×2 (18:09→19:43)
[2020-07-02] MEDS ORDERED: VANCOMYCIN 1GM/250ML 250 ML IV ONE (20:30)
[2020-07-02] MEDS ORDERED: MORPHINE SULFATE 4 MG/ML SYR/VIAL IV ONE (22:30)
[2020-07-02] MEDS ORDERED: ONDANSETRON HCL 4 MG/2 ML VIAL IV ONE (22:30)
[2020-07-03] VITALS: BP 119/90
[2020-07-04] MEDS ORDERED: ePHEDrine SULFATE 50 MG/ML AMP ONE (10:09)
== END 2020-07-03 00:37 | disposition short-term general hospital (02) ==
LOC: EDBD 09:09 → ER 09:09
DX: A15.7 Primary respiratory tuberculosis (principal); D47.3 Essential (hemorrhagic) thrombocythemia; E87.6 Hypokalemia; E83.42 Hypomagnesemia; J44.9 Chronic obstructive pulmonary disease, unspecified; F17.210 Nicotine dependence, cigarettes, uncomplicated; Z20.828 Contact with and (suspected) exposure to other viral communicable diseases
CPT/HCPCS: 36415; 71045; 80053; 83605; 83735; 83880; 84443; 84484; 85025; 85379; 85610; 85730; 87040; 87077; 87186; 87426; 96361; 96365; 96367; 96375; 99285; C9803; J0696; J2270; J2405; J3370; J3475; U0003; 93005

== ENCOUNTER 2021-06-25 10:15 | Inpatient (IN) | payer BC, MEDICARE ==
[~2021-06-25] VITALS: Ht 160 cm; Wt 52.5 kg
[2021-06-25] MEDS ORDERED: MORPHINE SULFATE 4 MG/ML SYR/VIAL IV ONE (11:00)
[2021-06-25] MEDS ORDERED: ONDANSETRON HCL 4 MG/2 ML VIAL IV ONE (11:00)
[2021-06-25 11:13] LABS: Eosinophils # (auto) 0.2 10 ^3/uL (0-0.8); Mean Corpuscular Volume 70.2 fL (80.0-100.0)
[2021-06-25 11:15] LABS: Basophils # (auto) 0.1 10 ^3/uL (0-0.2); Basophils % (auto) 0.7 % (0.0-2.0); Eosinophils % (auto) 1.9 % (0.0-7.0); Hematocrit 22.5 % (36.0-46.0); Hemoglobin 7.2 g/dL (12.2-16.2); Lymphocytes # (auto) 1.4 10 ^3/uL (0.4-5.4); Lymphocytes % (auto) 14.2 % (10.0-50.0); Mean Corpuscular Hemoglobin 22.5 pg (28.0-32.0); Monocytes # (auto) 0.8 10 ^3/uL (0-1.3); Monocytes % (auto) 8.2 % (0.0-12.0); Neutrophils # (auto) 7.4 10 ^3/uL (1.6-8.6); Red Blood Cells 3.21 10^6/uL (4.0-5.20); Red Cell Distribution Width 19.8 % (11.8-14.3); White Blood Cell 9.8 10^3/uL (4.4-10.8)
[2021-06-25] MEDS ORDERED: LORazepam 2MG/ML-1ML VIAL ONE (11:22)
[2021-06-25 11:26] LABS: Albumin 1.7 g/dL (3.4-5.0); Potassium 3.8 mmol/L (3.5-5.1)
[2021-06-25 11:28] LABS: INR 1.21 (0.9-1.15); Partial Thromboplastin Time 27.2 sec (23.6-33.0)
[2021-06-25 11:29] LABS: BUN/Creatinine Ratio 17.5; Bilirubin, Total 0.4 mg/dL (0.2-1.0); Total Protein 8.4 g/dL (6.4-8.2)
[2021-06-25] MEDS ORDERED: LORazepam 2MG/ML-1ML VIAL IV ONE (11:30)
[2021-06-25] MEDS ORDERED: SODIUM CHLORIDE 0.9% 1,000 ML IV ONE ×2 (12:30)
[2021-06-25] MEDS ORDERED: IPRATROPIUM BROM 0.5 MG/2.5ML INH SOL NEB PRN (14:00)
[2021-06-25] MEDS ORDERED: ONDANSETRON HCL 4 MG/2 ML VIAL IV PRN (14:00)
[2021-06-25] MEDS ORDERED: SODIUM CHLORIDE 0.9% 500 ML IV ONE (14:00)
[2021-06-25] MEDS ORDERED: NITROGLYCERIN 0.4 MG SL TAB SL PRN (14:00)
[2021-06-25] MEDS ORDERED: LABETALOL HCL 5 MG/ML 4ML SYRINGE IV PRN (14:00)
[2021-06-25] MEDS ORDERED: ALBUTEROL SULF 2.5 MG/0.5ML(0.5%) NEB SOLN NEB PRN (14:00)
[2021-06-25] MEDS ORDERED: ACETAMINOPHEN 325 MG RECT SUPP PR PRN (14:00)
[2021-06-25] MEDS ORDERED: MORPHINE SULFATE INJECTION 2 MG/ML SYRG IV PRN (14:00)
[2021-06-25 14:45] VITALS: BP 129/89
[2021-06-25] MEDS: SODIUM CHLORIDE 0.9% 1,000 ML IV SCH (15:29)
[2021-06-25 15:50] LABS: Urine Bacteria NONE SEEN /hpf (None Seen); Urine Blood Negative /uL (Negative); Urine Mucus FEW (None Seen); Urine Specific Gravity 1.017 (1.001-1.035); Urine WBC 1 /hpf (0 - 5)
[2021-06-25 16:10] LABS: INR 1.2 (0.9-1.15); Partial Thromboplastin Time 27.6 sec (23.6-33.0)
[2021-06-25 19:05] LABS: Potassium 4.2 mmol/L (3.5-5.1)
[2021-06-25] MEDS: MORPHINE SULFATE 4 MG/ML SYR/VIAL IV PRN (20:55)
[2021-06-26] VITALS (9 sets, daily range): BP systolic 120–140; BP diastolic 85–93
[2021-06-26] MEDS: MORPHINE SULFATE 4 MG/ML SYR/VIAL IV PRN ×7 (00:22→23:41)
[2021-06-26 05:00] LABS: Hematocrit 22.6 % (36.0-46.0); Hemoglobin 7.2 g/dL (12.2-16.2); Lymphocytes # (auto) 2.2 10 ^3/uL (0.4-5.4); Monocytes # (auto) 1.2 10 ^3/uL (0-1.3); Red Blood Cells 3.25 10^6/uL (4.0-5.20)
[2021-06-26 05:04] LABS: Basophils # (auto) 0.1 10 ^3/uL (0-0.2); Basophils % (auto) 0.5 % (0.0-2.0); Eosinophils # (auto) 0 10 ^3/uL (0-0.8); Eosinophils % (auto) 0.3 % (0.0-7.0); Lymphocytes % (auto) 19.4 % (10.0-50.0); Mean Corpuscular Hemoglobin 22.2 pg (28.0-32.0); Mean Corpuscular Hgb Conc. 31.9 g/dL (32.0-36.0); Mean Corpuscular Volume 69.5 fL (80.0-100.0); Monocytes % (auto) 10.5 % (0.0-12.0); Neutrophils # (auto) 7.9 10 ^3/uL (1.6-8.6); Neutrophils % (auto) 69.3 % (37.0-80.0); White Blood Cell 11.5 10^3/uL (4.4-10.8)
[2021-06-26 05:11] LABS: Red Cell Distribution Width 20.2 % (11.8-14.3)
[2021-06-26 05:14] LABS: Albumin 1.5 g/dL (3.4-5.0); Calcium 8.6 mg/dL (8.5-10.1); Potassium 3.9 mmol/L (3.5-5.1)
[2021-06-26 05:18] LABS: BUN/Creatinine Ratio 16.1; Bilirubin, Total 0.4 mg/dL (0.2-1.0); Total Protein 7.6 g/dL (6.4-8.2)
[2021-06-26] MEDS: SODIUM CHLORIDE 0.9% 1,000 ML IV SCH ×2 (06:46→23:53)
[2021-06-26] MEDS ORDERED: MORPHINE SULFATE INJECTION 2 MG/ML SYRG ONE (07:55)
[2021-06-26] MEDS: cefTRIAXone 1GM/50ML D5W 50 ML IV SCH (09:19)
[2021-06-26] MEDS: PANTOPRAZOLE 40 MG/10 ML VIAL INJ IV SCH (10:46)
[2021-06-26] MEDS: Ensure HIGH Protein Chocolate 8oz Bottle PO SCH ×2 (17:47→21:36)
[2021-06-26 17:56] LABS: Ferritin 383.2 ng/mL (10-322)
[2021-06-26 17:57] LABS: Folate (Folic Acid) 19.46 ng/mL (5.38-24)
[2021-06-26] MEDS: PHYTONADIONE(VitK) ORAL Susp 10mg/10ml(1mg/ml) PO SCH (18:34)
[2021-06-27 05:48] VITALS: BP 133/90
[2021-06-27] MEDS: MORPHINE SULFATE 4 MG/ML SYR/VIAL IV PRN ×3 (05:48→11:59)
[2021-06-27] MEDS: Ensure HIGH Protein Chocolate 8oz Bottle PO SCH ×4 (05:48→22:11)
[2021-06-27 07:04] LABS: Basophils # (auto) 0 10 ^3/uL (0-0.2); Basophils % (auto) 0.4 % (0.0-2.0); Eosinophils # (auto) 0.1 10 ^3/uL (0-0.8); Lymphocytes # (auto) 1.8 10 ^3/uL (0.4-5.4)
[2021-06-27 07:07] LABS: Eosinophils % (auto) 0.5 % (0.0-7.0); Hematocrit 31.9 % (36.0-46.0); Hemoglobin 10.8 g/dL (12.2-16.2); Lymphocytes % (auto) 16.9 % (10.0-50.0); Mean Corpuscular Volume 73.7 fL (80.0-100.0); Monocytes # (auto) 1.1 10 ^3/uL (0-1.3); Monocytes % (auto) 10.7 % (0.0-12.0); Neutrophils # (auto) 7.5 10 ^3/uL (1.6-8.6); Neutrophils % (auto) 71.5 % (37.0-80.0); Red Blood Cells 4.33 10^6/uL (4.0-5.20); Red Cell Distribution Width 21.4 % (11.8-14.3); White Blood Cell 10.6 10^3/uL (4.4-10.8)
[2021-06-27 07:26] LABS: Albumin 1.4 g/dL (3.4-5.0); Calcium 8.6 mg/dL (8.5-10.1); Potassium 3.8 mmol/L (3.5-5.1)
[2021-06-27 07:29] LABS: BUN/Creatinine Ratio 24.1; Bilirubin, Total 1.4 mg/dL (0.2-1.0); Total Protein 7.4 g/dL (6.4-8.2)
[2021-06-27 08:00] VITALS: BP 135/90
[2021-06-27] MEDS: cefTRIAXone 1GM/50ML D5W 50 ML IV SCH (08:44)
[2021-06-27 09:00] VITALS: BP 135/90
[2021-06-27] MEDS: PANTOPRAZOLE 40 MG/10 ML VIAL INJ IV SCH (09:39)
[2021-06-27] MEDS: PHYTONADIONE(VitK) ORAL Susp 10mg/10ml(1mg/ml) PO SCH (09:47)
[2021-06-27] MEDS ORDERED: HYDROmorphone HCL 2 MG/ML VL IV ONE (12:45)
[2021-06-27 13:00] VITALS: BP 109/75
[2021-06-27] MEDS: LORazepam 2MG/ML-1ML VIAL IV PRN (14:38)
[2021-06-27] MEDS: SODIUM CHLORIDE 0.9% 1,000 ML IV SCH (16:19)
[2021-06-27 17:00] VITALS: BP 118/80
[2021-06-27] MEDS: HYDROmorphone HCL 2 MG/ML VL IV PRN (18:48)
[2021-06-27 22:00] VITALS: BP 112/82
[2021-06-28] VITALS (18 sets, daily range): BP systolic 71–123; BP diastolic 49–80
[2021-06-28] MEDS: HYDROmorphone HCL 2 MG/ML VL IV PRN ×6 (00:44→19:51)
[2021-06-28 05:17] LABS: Basophils # (auto) 0 10 ^3/uL (0-0.2); Basophils % (auto) 0.2 % (0.0-2.0); Eosinophils # (auto) 0.1 10 ^3/uL (0-0.8); Hemoglobin 9.9 g/dL (12.2-16.2)
[2021-06-28 05:19] LABS: Eosinophils % (auto) 0.6 % (0.0-7.0); Hematocrit 30.1 % (36.0-46.0); Lymphocytes % (auto) 15.4 % (10.0-50.0); Mean Corpuscular Hemoglobin 23.7 pg (28.0-32.0); Mean Corpuscular Hgb Conc. 32.7 g/dL (32.0-36.0); Mean Corpuscular Volume 72.5 fL (80.0-100.0); Monocytes # (auto) 1.1 10 ^3/uL (0-1.3); Monocytes % (auto) 8.3 % (0.0-12.0); Neutrophils # (auto) 9.8 10 ^3/uL (1.6-8.6); Neutrophils % (auto) 75.5 % (37.0-80.0); Nucleated Red Blood Cells % 0.1 %; Red Blood Cells 4.16 10^6/uL (4.0-5.20)
[2021-06-28 05:24] LABS: Red Cell Distribution Width 21.9 % (11.8-14.3)
[2021-06-28 05:29] LABS: Calcium 8.2 mg/dL (8.5-10.1)
[2021-06-28 05:30] LABS: INR 1.1 (0.9-1.15)
[2021-06-28 05:31] LABS: BUN/Creatinine Ratio 22.6
[2021-06-28] MEDS: Ensure HIGH Protein Chocolate 8oz Bottle PO SCH ×4 (06:00→22:25)
[2021-06-28] MEDS ORDERED: TRANEXAMIC ACID 20 ML ONE (06:49)
[2021-06-28] MEDS: BUPIVACAINE 0.25% INJ 50ML VIAL ONE ×2 (06:49→08:30)
[2021-06-28] MEDS: VANCOMYCIN HCL 1000 MG VL ONE ×2 (06:51→08:31)
[2021-06-28] MEDS: KETOROLAC TROMETH 30 MG/ML 1ML VIAL ONE ×2 (06:51→08:30)
[2021-06-28] MEDS ORDERED: TETRACAINE 1% INJ 2 ML VIAL IJ ONE (06:52)
[2021-06-28] MEDS ORDERED: fentaNYL CITRATE 100 MCG/2 ML VL ONE (06:58)
[2021-06-28] MEDS ORDERED: SODIUM CHLORIDE LOCK 10 ML ONE (06:58)
[2021-06-28] MEDS ORDERED: MORPHINE SULF PF 2 MG/2 ML SYRG ONE (06:58)
[2021-06-28] MEDS ORDERED: ONDANSETRON HCL 4 MG/2 ML VIAL ONE (06:58)
[2021-06-28] MEDS ORDERED: BUPIVACAINE/DEXTROSE MPF 0.75% 2 ML AMP IT ONE (06:58)
[2021-06-28] MEDS ORDERED: PROPOFOL 10 MG/ML 20 ML IV ONE (06:58)
[2021-06-28] MEDS ORDERED: MIDAZOLAM HCL 2MG/2ML 2ml VIAL (1mg/ml) ONE ×2 (06:58→07:16)
[2021-06-28] MEDS ORDERED: EPINEPHrine HCL 1 MG/1 ML AMP ONE (06:58)
[2021-06-28] MEDS ORDERED: ceFAZolin 1GM/50ML 100 ML IV ONE (07:05)
[2021-06-28] MEDS: ceFAZolin 1GM/50ML 50 ML IV SCH ×4 (07:08→21:09)
[2021-06-28] MEDS ORDERED: HYDROmorphone HCL 2 MG/ML VL IV PRN (08:15)
[2021-06-28] MEDS ORDERED: MORPHINE SULFATE 4 MG/ML SYR/VIAL IV PRN (08:15)
[2021-06-28] MEDS ORDERED: METOCLOPRAMIDE HCL 5MG/ml INJ 2ml VIAL IV PRN (08:15)
[2021-06-28] MEDS ORDERED: diphenhdrAMINE HCL 50 MG/1 ML VL IV PRN (08:15)
[2021-06-28] MEDS ORDERED: ACCU-CHEK COMFORT CURVE STRIP VI ONE (08:15)
[2021-06-28] MEDS ORDERED: NALOXONE HCL 0.4 MG/ML VIAL IV PRN (08:15)
[2021-06-28] MEDS: SODIUM CHLORIDE 0.9% 1,000 ML IV SCH (08:40)
[2021-06-28] MEDS: LACTATED RINGER'S 1,000 ML IV SCH ×2 (08:45→10:45)
[2021-06-28] MEDS: ENOXAPARIN SOD 40 MG/0.4 ML SYRINGE SC SCH (10:00)
[2021-06-28] MEDS: PANTOPRAZOLE 40 MG/10 ML VIAL INJ IV SCH (10:41)
[2021-06-28] MEDS: cefTRIAXone 1GM/50ML D5W 50 ML IV SCH (10:41)
[2021-06-28] MEDS ORDERED: SODIUM CHLORIDE 0.9% 500 ML IV ONE ×2 (11:15→12:30)
[2021-06-28] MEDS: PHYTONADIONE(VitK) ORAL Susp 10mg/10ml(1mg/ml) PO SCH (12:01)
[2021-06-28 14:01] LABS: Hematocrit 28.3 % (36.0-46.0); Hemoglobin 8.8 g/dL (12.2-16.2)
[2021-06-28] MEDS: SODIUM CHLOR 0.9% PF (SALINE LOCK) 10ML VIAL/SYR IV SCH ×2 (14:13→22:25)
[2021-06-28] MEDS: LORazepam 2MG/ML-1ML VIAL IV PRN (18:08)
[2021-06-28 18:43] LABS: Hematocrit 29.6 % (36.0-46.0); Hemoglobin 9.4 g/dL (12.2-16.2)
[2021-06-28] MEDS ORDERED: SODIUM CHLORIDE 0.9% 300 ML IV ONE (23:45)
[2021-06-29] VITALS (16 sets, daily range): BP systolic 90–117; BP diastolic 57–76
[2021-06-29] MEDS: HYDROmorphone HCL 2 MG/ML VL IV PRN ×5 (00:38→17:49)
[2021-06-29] MEDS: LACTATED RINGER'S 1,000 ML IV SCH ×2 (01:12→15:51)
[2021-06-29] MEDS: SODIUM CHLOR 0.9% PF (SALINE LOCK) 10ML VIAL/SYR IV SCH ×3 (05:52→22:00)
[2021-06-29] MEDS: Ensure HIGH Protein Chocolate 8oz Bottle PO SCH ×4 (05:53→22:00)
[2021-06-29 06:38] LABS: Basophils # (auto) 0 10 ^3/uL (0-0.2); Eosinophils # (auto) 0.1 10 ^3/uL (0-0.8); Lymphocytes # (auto) 1.6 10 ^3/uL (0.4-5.4); Mean Corpuscular Volume 73.8 fL (80.0-100.0); Monocytes # (auto) 0.9 10 ^3/uL (0-1.3); Neutrophils # (auto) 6.5 10 ^3/uL (1.6-8.6)
[2021-06-29 06:41] LABS: Basophils % (auto) 0.2 % (0.0-2.0); Eosinophils % (auto) 0.7 % (0.0-7.0); Hematocrit 25.1 % (36.0-46.0); Hemoglobin 8.2 g/dL (12.2-16.2); Lymphocytes % (auto) 17.3 % (10.0-50.0); Mean Corpuscular Hemoglobin 24.1 pg (28.0-32.0); Mean Corpuscular Hgb Conc. 32.6 g/dL (32.0-36.0); Monocytes % (auto) 10.4 % (0.0-12.0); Neutrophils % (auto) 71.4 % (37.0-80.0)
[2021-06-29 06:45] LABS: Albumin 1.2 g/dL (3.4-5.0); Calcium 7.9 mg/dL (8.5-10.1); Potassium 4.1 mmol/L (3.5-5.1)
[2021-06-29 06:49] LABS: Bilirubin, Total 0.8 mg/dL (0.2-1.0)
[2021-06-29 07:03] LABS: Red Cell Distribution Width 21.9 % (11.8-14.3)
[2021-06-29] MEDS: cefTRIAXone 1GM/50ML D5W 50 ML IV SCH (09:18)
[2021-06-29] MEDS: PANTOPRAZOLE 40 MG/10 ML VIAL INJ IV SCH (09:18)
[2021-06-29] MEDS: ENOXAPARIN SOD 40 MG/0.4 ML SYRINGE SC SCH (09:19)
[2021-06-29] MEDS ORDERED: ENOXAPARIN SOD 30 MG/0.3 ML SYRINGE SC SCH (10:00)
[2021-06-29] MEDS: PHYTONADIONE(VitK) ORAL Susp 10mg/10ml(1mg/ml) PO SCH (12:57)
[2021-06-29] MEDS: HYDROcodone-ACET 10/325MG TAB PO PRN (14:22)
[2021-06-29 14:38] LABS: Hematocrit 27.2 % (36.0-46.0); Hemoglobin 8.6 g/dL (12.2-16.2)
[2021-06-30] MEDS: LACTATED RINGER'S 1,000 ML IV SCH ×3 (01:26→21:16)
[2021-06-30] MEDS: HYDROmorphone HCL 2 MG/ML VL IV PRN ×4 (01:35→21:16)
[2021-06-30 05:00] VITALS: BP 102/57
[2021-06-30] MEDS: SODIUM CHLOR 0.9% PF (SALINE LOCK) 10ML VIAL/SYR IV SCH ×3 (05:30→21:16)
[2021-06-30] MEDS: Ensure HIGH Protein Chocolate 8oz Bottle PO SCH ×3 (05:30→21:16)
[2021-06-30] MEDS: HYDROcodone-ACET 10/325MG TAB PO PRN ×2 (05:51→12:11)
[2021-06-30 06:02] LABS: Hemoglobin 8.4 g/dL (12.2-16.2)
[2021-06-30 06:05] LABS: Hematocrit 25.1 % (36.0-46.0)
[2021-06-30 08:00] VITALS: BP 90/59
[2021-06-30] MEDS: PANTOPRAZOLE 40 MG/10 ML VIAL INJ IV SCH (08:56)
[2021-06-30] MEDS: ENOXAPARIN SOD 40 MG/0.4 ML SYRINGE SC SCH (08:59)
[2021-06-30 09:00] VITALS: BP 90/59
[2021-06-30 13:00] VITALS: BP 96/97
[2021-06-30 17:00] VITALS: BP 90/60
[2021-06-30] MEDS: LORazepam 2MG/ML-1ML VIAL IV PRN (17:56)
[2021-06-30 21:39] VITALS: BP 113/70
[2021-07-01] MEDS: HYDROmorphone HCL 2 MG/ML VL IV PRN ×5 (01:44→23:07)
[2021-07-01 05:16] VITALS: BP 103/63
[2021-07-01 05:30] LABS: Hematocrit 25.4 % (36.0-46.0); Hemoglobin 8.2 g/dL (12.2-16.2)
[2021-07-01] MEDS: SODIUM CHLOR 0.9% PF (SALINE LOCK) 10ML VIAL/SYR IV SCH ×3 (06:12→22:45)
[2021-07-01] MEDS: Ensure HIGH Protein Chocolate 8oz Bottle PO SCH ×4 (06:12→22:45)
[2021-07-01] MEDS: LACTATED RINGER'S 1,000 ML IV SCH ×2 (06:12→16:41)
[2021-07-01 08:00] VITALS: BP 92/59
[2021-07-01] MEDS: LORazepam 2MG/ML-1ML VIAL IV PRN (08:14)
[2021-07-01 09:00] VITALS: BP 92/59
[2021-07-01] MEDS: ENOXAPARIN SOD 40 MG/0.4 ML SYRINGE SC SCH (09:47)
[2021-07-01] MEDS: PANTOPRAZOLE 40 MG/10 ML VIAL INJ IV SCH (09:48)
[2021-07-01] MEDS: HYDROcodone-ACET 10/325MG TAB PO PRN ×2 (12:00→20:09)
[2021-07-01 13:00] VITALS: BP 89/65
[2021-07-01 17:26] VITALS: BP 85/49
[2021-07-01 21:47] VITALS: BP 93/68
[2021-07-02] MEDS: LACTATED RINGER'S 1,000 ML IV SCH ×2 (03:26→13:37)
[2021-07-02] MEDS: HYDROcodone-ACET 10/325MG TAB PO PRN ×2 (04:13→15:15)
[2021-07-02 05:26] VITALS: BP 95/70
[2021-07-02] MEDS: HYDROmorphone HCL 2 MG/ML VL IV PRN ×2 (05:52→12:33)
[2021-07-02] MEDS: Ensure HIGH Protein Chocolate 8oz Bottle PO SCH ×2 (05:53→12:33)
[2021-07-02] MEDS: SODIUM CHLOR 0.9% PF (SALINE LOCK) 10ML VIAL/SYR IV SCH ×2 (05:53→14:32)
[2021-07-02 09:00] VITALS: BP 105/76
[2021-07-02] MEDS: PANTOPRAZOLE 40 MG/10 ML VIAL INJ IV SCH (09:53)
[2021-07-02] MEDS: ENOXAPARIN SOD 40 MG/0.4 ML SYRINGE SC SCH (09:53)
[2021-07-02] MEDS: LORazepam 2MG/ML-1ML VIAL IV PRN (09:53)
[2021-07-02 13:09] VITALS: BP 112/70
[2021-07-02 16:45] VITALS: BP 96/65
== END 2021-07-02 17:31 | DRG 521 ==
LOC: ER 10:15 → EDBD 10:15 → TELE 13:59 → TELE-WESTW 06-26 08:15
PROVIDERS: ADMIT Family Medicine; ATTEND Family Medicine
PROC: 30233N1 Transfusion of Nonautologous Red Blood Cells into Peripheral Vein, Percutaneous Approach (ICD-10-PCS; 2021-06-26)
PROC: 0SRS0J9 Replacement of Left Hip Joint, Femoral Surface with Synthetic Substitute, Cemented, Open Approach (ICD-10-PCS; principal; 2021-06-28 07:10)
DX: S72.012A Unspecified intracapsular fracture of left femur, initial encounter for closed fracture (principal); N17.0 Acute kidney failure with tubular necrosis; E87.1 Hypo-osmolality and hyponatremia; M87.9 Osteonecrosis, unspecified; E44.0 Moderate protein-calorie malnutrition; D68.9 Coagulation defect, unspecified; R64 Cachexia; F11.20 Opioid dependence, uncomplicated; Z20.822 Contact with and (suspected) exposure to COVID-19; W01.0XXA Fall on same level from slipping, tripping and stumbling without subsequent striking against object, initial encounter; E86.0 Dehydration; J44.9 Chronic obstructive pulmonary disease, unspecified; D64.9 Anemia, unspecified; E86.1 Hypovolemia; F17.210 Nicotine dependence, cigarettes, uncomplicated; F41.9 Anxiety disorder, unspecified; I12.9 Hypertensive chronic kidney disease with stage 1 through stage 4 chronic kidney disease, or unspecified chronic kidney disease; I25.10 Atherosclerotic heart disease of native coronary artery without angina pectoris; L98.8 Other specified disorders of the skin and subcutaneous tissue; N18.9 Chronic kidney disease, unspecified; Z96.642 Presence of left artificial hip joint; N20.0 Calculus of kidney; Z79.01 Long term (current) use of anticoagulants; Z82.5 Family history of asthma and other chronic lower respiratory diseases; Z87.442 Personal history of urinary calculi; Z93.3 Colostomy status; Y93.89 Activity, other specified; Y92.89 Other specified places as the place of occurrence of the external cause; Y99.8 Other external cause status; Z90.49 Acquired absence of other specified parts of digestive tract; Z88.1 Allergy status to other antibiotic agents; Z79.899 Other long term (current) drug therapy; Z68.20 Body mass index [BMI] 20.0-20.9, adult
CPT/HCPCS: 36415; 71045; 72170; 72192; 80048; 80051; 80053; 81001; 82607; 82728; 82746; 83540; 83550; 83615; 83880; 84443; 84484; 85014; 85018; 85025; 85045; 85610; 85730; 86850; 86900; 86901; 86920; 87426; 93005; 93306; 96361; 96374; 96375; 97116; 97163; 97530; A4565; C9113; G0378; J0171; J0690; J0696; J1885; J2250; J2405; J2704; J3490